=== PATIENT | female | born 1960 | race Caucasian/White ===

== ENCOUNTER 2023-09-10 07:47 | Outpatient (REF) | payer OTHER, SELFPAY ==
--- NOTE | ~2023-09-10 | XR_ITS ---
EXAMINATION: XR KNEE, LEFT CLINICAL INFORMATION: Pain in left knee. COMPARISON: None available. TECHNIQUE: Three views of the left knee. FINDINGS: Moderate joint effusion. Status post left knee total arthroplasty. Hardware appears intact. Alignment preserved. Subtle 1 mm lucency subjacent to the medial tibial flange of the prosthesis. XR/XR knee LT 3V IMPRESSION: 1. Status post left knee total arthroplasty. Hardware appears intact. Alignment preserved. 2. Subtle 1 mm lucency subjacent to the medial tibial flange of the prosthesis. 3. Moderate joint effusion.
== END 2023-09-10 07:48 | disposition home or self-care (01) ==
LOC: HO.HOSX 07:47
PROVIDERS: Visit Provider Orthopaedic Surgery
DX: M25.562 Pain in left knee (principal)
CPT/HCPCS: 73562

== ENCOUNTER 2023-09-10 08:29 | Outpatient (AMB) | payer OTHER, SELFPAY ==
--- NOTE | 2023-09-10 08:42 | MHC.OFFVIS ---
Intake Visit Reasons: OV Left Knee pain surg 2018 DR [place] Note: Verónica is a 62 year old female who presents with complaints of intermittent discomfort in her left knee after undergoing left total knee replacement surgery in August of 2017. The patient states that she retired from her job approximately 1 year ago. Since that time she states that she has been fairly sedentary. She does not have a consistent exercise or stretching program. She also reports weakness in both of her lower extremities. She denies any fevers or chills. She has taken Tylenol and Motrin which gave her mild relief. Allergies amoxicillin Allergy (Intermediate, Verified 09/10/23 08:47) Rash azithromycin Allergy (Intermediate, Verified 09/10/23 08:47) Rash Sulfa (Sulfonamide Antibiotics) Allergy (Intermediate, Verified 09/10/23 08:47) Rash Medication List - Last Reconciled 09/10/23 by Bertrand Sanford MD albuterol sulfate 90 mcg/actuation inhalation clindamycin HCl 600 mg (2 x 300 mg) PO ONCE nicotine (polacrilex) mg PO pravastatin 20 mg PO DAILY PFSH Surgical History (Updated 09/10/23 @ 08:50 by Jocelin Grimes CMA) History of lumpectomy of both breasts Hx of right knee surgery Hx of hysterectomy Hx of left knee surgery Social History (Updated 09/10/23 @ 08:50 by Jocelin Grimes CMA) Patient Tobacco Use Status: Former Tobacco user Current occupational status: retired Physical Exam Const Other: Well-nourished well-developed very friendly female awake alert and oriented x3 in no acute distress Extrem Other: Bilateral lower extremity examination shows good capillary refill, no skin lesions noted, normal sensation light touch Left knee examination shows that the surgical incision is well healed, no erythema, full active extension and flexion to 115 degrees, her patella tracks well Results Reviewed Results Reviewed: X-rays of the patient's left knee show a total knee arthroplasty in good position with no signs of loosening, no acute bony abnormalities Assessment & Plan Assessment & Plan (1) Left knee pain: Code(s): M25.562 - Pain in left knee Category: Medical Plan Ms. Ojeda presents with intermittent left knee discomfort and bilateral lower extremity weakness most likely due to disuse stiffness and muscle atrophy. I had a lengthy discussion with the patient regarding the treatment options. I did recommend that she go to formal physical therapy. She states that she is willing to do so. I also encouraged her to begin a regular exercise program. She will contact me prior to her follow-up appointment in 2-3 months should any questions or concerns arise. Feel free to call me at any time should questions regarding her orthopedic management arise. I spent 21 minutes in reviewing the patient's records and imaging studies, seeing the patient and documenting in the medical record. Orders: Orders XR knee LT 3V Today M25.562 - Pain in left knee PT Evaluation and Treatment Today M25.562 - Pain in left knee Medications: New clindamycin HCl Take two caps (600 mg) one hour before any dental work 600 mg (2 x 300 mg) PO ONCE 10 caps 0RF Coding Level of Care Code Est Pt Level 3 (03620) Diagnoses Left knee pain M25.562
== END 2023-09-10 09:16 | disposition home or self-care (01) ==
PROVIDERS: Visit Provider Orthopaedic Surgery
DX: M25.562 Pain in left knee (principal)
CPT/HCPCS: 99213

== ENCOUNTER 2023-12-13 09:17 | Outpatient (AMB) | payer OTHER, SELFPAY ==
--- NOTE | 2023-12-13 09:44 | MHC.OFFVIS ---
Intake Visit Reasons: OV Left Knee pain surg 2018 DR Intake Note: Verónica is a 63 year old female who presents to the office today for Left Knee pain ( TKA surgery 2018 DR). Pt states the pain has been progressivley getting worse even after doing a few weeks of PT. Pt states she has the most pain when walking up the stairs. The patient states that she has been fairly sedentary after recently retiring. She states that she is considering joining a gym to exercise more. She denies any fevers or chills. She denies any locking or giving way. Allergies amoxicillin Allergy (Intermediate, Verified 12/13/23 09:45) Rash azithromycin Allergy (Intermediate, Verified 12/13/23 09:45) Rash Sulfa (Sulfonamide Antibiotics) Allergy (Intermediate, Verified 12/13/23 09:45) Rash Medication List - Last Reconciled 12/14/23 by Bertrand Sanford MD albuterol sulfate 90 mcg/actuation inhalation clindamycin HCl 600 mg (2 x 300 mg) PO ONCE fluticasone furoate-vilanterol 100-25 mcg/dose (Breo Ellipta) 1 inh inhalation DAILY nicotine (polacrilex) mg PO pravastatin 20 mg PO DAILY PFSH Surgical History (Updated 09/10/23 @ 08:50 by Jocelin Grimes CMA) History of lumpectomy of both breasts Hx of right knee surgery Hx of hysterectomy Hx of left knee surgery Social History (Updated 09/10/23 @ 08:50 by Jocelin Grimes CMA) Patient Tobacco Use Status: Former Tobacco user Current occupational status: retired Physical Exam Const Other: Well-nourished well-developed very friendly female awake alert and oriented x3 in no acute distress Extrem Other: Bilateral lower extremity examination shows good capillary refill, no skin lesions noted, normal sensation light touch Left knee examination shows that the surgical incision is well healed, no erythema, full active extension and flexion to 120 degrees, her patella tracks well, no instability Results Reviewed Results Reviewed: X-rays of the patient's left knee show a total knee arthroplasty in good position with no signs of loosening, no acute bony abnormalities Assessment & Plan Assessment & Plan (1) Left knee pain: Code(s): M25.562 - Pain in left knee Category: Medical Plan Ms. Ojeda presents with continued discomfort in her left knee after undergoing left total knee replacement surgery in 2018 most likely due to scar tissue formation and disuse secondary to her sedentary lifestyle. Thus, I did encourage her to go ahead and join a gym with her to begin an exercise program. I will also arrange for her to have a an evaluation by Dr. Coombs in our pain management Department here at [facility] to see if the patient is a candidate for a nerve stimulation procedure. The patient does know to take antibiotics before any dental work. She will contact me prior to her follow-up appointment in 3 months should any questions or concerns arise. Feel free to call me at any time should questions regarding her orthopedic management arise. I spent 21 minutes in reviewing the patient's records and imaging studies, seeing the patient and documenting in the medical record. Orders: Referrals Pain Management Referral M25.562 - Pain in left knee Coding Level of Care Code Est Pt Level 3 (55656) Diagnoses Left knee pain M25.562
== END 2023-12-13 10:12 | disposition home or self-care (01) ==
PROVIDERS: Visit Provider Orthopaedic Surgery
DX: M25.562 Pain in left knee (principal); Z96.652 Presence of left artificial knee joint
CPT/HCPCS: 99213

== ENCOUNTER → 2023-12-13 09:17 | Outpatient (BNVA) | payer OTHER, SELFPAY | PROVIDERS: Visit Provider Orthopaedic Surgery ==

== ENCOUNTER 2024-01-16 09:17 | Outpatient (AMB) | payer OTHER, SELFPAY ==
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
[2024-01-16 09:23] VITALS: BP 136/75; PULSE 88; RESP 15; O2SAT 97; BMI 45.4
== END 2024-01-16 10:18 | disposition home or self-care (01) ==
PROVIDERS: PCP Student in an Organized Health Care Education/Training Program; Referring Provider Orthopaedic Surgery; Visit Provider Internal Medicine
DX: M25.562 Pain in left knee (principal)
CPT/HCPCS: 99204

== ENCOUNTER → 2024-01-16 09:17 | Outpatient (BNVA) | payer OTHER, SELFPAY | PROVIDERS: Referring Provider Orthopaedic Surgery; Visit Provider Internal Medicine ==

== ENCOUNTER 2024-02-05 12:54 | Outpatient (AMB) | payer OTHER, SELFPAY ==
[2024-02-05 13:16] VITALS: BMI 45.4
--- NOTE | 2024-02-05 13:16 | MHC.OFFVIS ---
Vital Signs 02/05/24 13:16 Height 5 ft 2 in Weight 248 lb BMI 45.4 Intake Visit Reasons: Right medial knee pain Intake Note: Verónica is a 63 year old female who presents with complaints of progressively worsening right knee pain. She did undergo left total knee replacement surgery several years ago. She reports minimal discomfort in her left knee. She describes her right knee pain as sharp and severe in nature. She wishes to hold off on right total knee replacement surgery for as long as possible. She has done physical therapy exercises which aggravated her pain. She has also tried Tylenol and anti-inflammatory medicines which gave her minimal relief. Allergies amoxicillin Allergy (Intermediate, Verified 02/05/24 13:16) Rash azithromycin Allergy (Intermediate, Verified 02/05/24 13:16) Rash Sulfa (Sulfonamide Antibiotics) Allergy (Intermediate, Verified 02/05/24 13:16) Rash Medication List - Last Reconciled 02/05/24 by Bertrand Sanford MD albuterol sulfate 90 mcg/actuation inhalation clindamycin HCl 600 mg (2 x 300 mg) PO ONCE esomeprazole magnesium 20 mg PO DAILY fluticasone furoate-vilanterol 100-25 mcg/dose (Breo Ellipta) 1 inh inhalation DAILY nicotine (polacrilex) mg PO pravastatin 20 mg PO DAILY PFSH Surgical History (Updated 09/10/23 @ 08:50 by Jocelin Grimes CMA) History of lumpectomy of both breasts Hx of right knee surgery Hx of hysterectomy Hx of left knee surgery Social History (Updated 09/10/23 @ 08:50 by Jocelin Grimes CMA) Patient Tobacco Use Status: Former Tobacco user Current occupational status: retired Physical Exam Vital Signs: BMI result Body Mass Index 45.4 Const Other: Well-nourished well-developed very friendly female awake alert and oriented x3 in no acute distress Extrem Other: Bilateral lower extremity examination shows good capillary refill, no skin lesions noted, normal sensation light touch Right knee examination shows a minimal effusion, palpable crepitus with range of motion, pain with range of motion, range of motion from -3 degrees to 115 degrees, no instability Office Procedures Joint Injection/Aspiration Joint Injection/Aspiration Primary Site: right knee Prep: site was prepped using aseptic technique Injected: 40 mg of, DepoMedrol and 1% plain lidocaine Procedure: The patient tolerated the procedure well Coding 50650 - Large joint Procedure code (CPT) selection complete Results Reviewed Results Reviewed: X-rays of the patient's right knee taken previously show joint space narrowing, subchondral sclerosis, no acute bony abnormalities Assessment & Plan Assessment & Plan (1) Right knee pain: Code(s): M25.561 - Pain in right knee Category: Medical (2) Right medial knee pain: Code(s): M25.561 - Pain in right knee Plan Verónica presents with progressively worsening right knee pain due to degenerative joint disease. I had a lengthy discussion with the patient regarding the treatment options. The risks and benefits of a right knee cortisone injection were discussed at length with the patient. The patient wished to proceed. She tolerated the injection well. She will continue with her home exercise program. She will contact me prior to her follow-up appointment in 3 months should any questions or concerns arise. Feel free to call me at any time should questions regarding her orthopedic management arise. I spent 20 minutes in reviewing the patient's records and imaging studies, seeing the patient and documenting in the medical record. Orders: Orders AMB Joint Injection/Aspiration Today M25.561 - Pain in right knee Coding Level of Care Code Est Pt Level 3 (38609) Complex EM visit Add On G2211 Diagnoses Right knee pain M25.561 Right medial knee pain M25.561 CPT Codes Coding - 20077 Large joint: 69703 - Large joint ([id number])
== END 2024-02-05 13:27 | disposition home or self-care (01) ==
PROVIDERS: PCP Student in an Organized Health Care Education/Training Program; Visit Provider Orthopaedic Surgery
DX: M25.561 Pain in right knee (principal)
CPT/HCPCS: 20610; 99213

== ENCOUNTER 2024-02-05 14:32 | Outpatient (REF) | payer OTHER, SELFPAY | END 2024-02-05 14:33 | disposition home or self-care (01) | LOC: HO.HOSX 14:32 | PROVIDERS: Visit Provider Orthopaedic Surgery | DX: M25.561 Pain in right knee (principal) | CPT/HCPCS: 20610; J1010; J2003 ==

== ENCOUNTER 2024-02-18 11:27 | Outpatient (AMB) | payer OTHER, SELFPAY ==
--- NOTE | 2024-02-18 11:27 | MHC.OFFVIS ---
Intake Visit Reasons: Procedure Discussion Allergies amoxicillin Allergy (Intermediate, Verified 02/05/24 13:16) Rash azithromycin Allergy (Intermediate, Verified 02/05/24 13:16) Rash Sulfa (Sulfonamide Antibiotics) Allergy (Intermediate, Verified 02/05/24 13:16) Rash HPI HPI Procedure Discussion: Details: 63-year-old female who presents today via tele visit for discussion of procedure. She currently has for; to (do) insurance. She deferred stimulation therapy due to psychological clearance and dealing with the insurance authorizations. She wants to hold the treatment for now. [facility] Surgical History (Updated 09/10/23 @ 08:50 by Jocelin Grimes CMA) History of lumpectomy of both breasts Hx of right knee surgery Hx of hysterectomy Hx of left knee surgery Social History (Updated 09/10/23 @ 08:50 by Jocelin Grimes CMA) Patient Tobacco Use Status: Former Tobacco user Current occupational status: retired Review of Systems Const All systems reviewed & are unremarkable except as noted in HPI and below Telehealth Telehealth Telehealth Platform: [facility] Location of provider rendering services: practice address Location of patient: address on file Patient Identification confirmed using: Name, : Yes Telehealth method: video Patient verbally consented to treatment: Yes Patient verbally consented to billing insurance company: Yes Patient informed of any privacy concerns related to visit: Yes Minutes spent on Phone/Video with Pt.: 5 Results Reviewed Results Reviewed: No imaging is available for review. Assessment & Plan Assessment & Plan (1) Right knee pain: Code(s): M25.561 - Pain in right knee Category: Medical (2) Left knee pain: Code(s): M25.562 - Pain in left knee Category: Medical Plan She is not interested in any interventional therapy at this time due to trouble with insurance authorizations. Follow up as needed. Scribed for Dr. Coombs by Bobby Saeed, emergency medical technician basic, on 02/18/2024. I, Dr. Coombs, have personally reviewed and agree with the information entered by the scribe. Coding Level of Care Code Tele Est Pt Level 2 (61631) Diagnoses Right knee pain M25.561 Left knee pain M25.562
== END 2024-02-18 11:27 | disposition home or self-care (01) ==
LOC: HO.PMC 11:27
PROVIDERS: PCP Student in an Organized Health Care Education/Training Program; Visit Provider Internal Medicine
DX: M25.561 Pain in right knee (principal); M25.562 Pain in left knee
CPT/HCPCS: 99212

== ENCOUNTER → 2024-02-18 11:27 | Outpatient (BNVA) | payer OTHER, SELFPAY | PROVIDERS: PCP Student in an Organized Health Care Education/Training Program; Visit Provider Internal Medicine ==

== ENCOUNTER 2024-05-07 07:35 | Outpatient (AMB) | payer OTHER, SELFPAY ==
--- NOTE | 2024-05-07 07:37 | A.OFFVIS_ITS ---
Vital Signs 05/07/24 07:38 Height 5 ft 2 in Weight 248 lb BMI 45.4 Intake Visit Reasons: Right knee pain Intake Note: Verónica is a 63 year old female who presents with complaints of progressively worsening right knee pain. She did undergo left total knee replacement surgery several years ago. She reports minimal discomfort in the left knee. She wishes to hold off on right total knee replacement surgery for as long as possible. She has had cortisone injections in the past which gave her fairly good relief. She has also tried Tylenol and ibuprofen which gave her mild relief. She denies any locking or giving way. Allergies amoxicillin Allergy (Intermediate, Verified 05/07/24 07:38) Rash azithromycin Allergy (Intermediate, Verified 05/07/24 07:38) Rash Sulfa (Sulfonamide Antibiotics) Allergy (Intermediate, Verified 05/07/24 07:38) Rash Medication List - Last Reconciled 05/07/24 by Bertrand Sanford MD albuterol sulfate 90 mcg/actuation inhalation clindamycin HCl 600 mg (2 x 300 mg) PO ONCE esomeprazole magnesium 20 mg PO DAILY fluticasone furoate-vilanterol 100-25 mcg/dose (Breo Ellipta) 1 inh inhalation DAILY nicotine (polacrilex) mg PO pravastatin 20 mg PO DAILY PFSH Surgical History (Updated 09/10/23 @ 08:50 by Jocelin Grimes CMA) History of lumpectomy of both breasts Hx of right knee surgery Hx of hysterectomy Hx of left knee surgery Social History (Updated 09/10/23 @ 08:50 by Jocelin Grimes CMA) Patient Tobacco Use Status: Former Tobacco user Current occupational status: retired Physical Exam Vital Signs: BMI result Body Mass Index 45.4 Const Other: Well-nourished well-developed very friendly female awake alert and oriented x3 in no acute distress Extrem Other: Bilateral lower extremity examination shows good capillary refill, no skin lesions noted, normal sensation light touch Right knee examination shows a minimal effusion, palpable crepitus with range of motion, pain with range of motion, no instability Office Procedures AMB Joint Injection/Aspiration Joint Injection/Aspiration Primary Site: right knee Prep: site was prepped using aseptic technique Injected: 40 mg of, DepoMedrol and 1% plain lidocaine Procedure: The patient tolerated the procedure well Coding 44157 - Large joint Procedure code (CPT) selection complete Results Reviewed Results Reviewed: X-rays of the patient's right knee taken previously show joint space narrowing, subchondral sclerosis, no acute bony abnormalities Assessment & Plan Assessment & Plan (1) Right knee pain: Code(s): M25.561 - Pain in right knee Category: Medical (2) Arthritis of right knee: Code(s): M17.11 - Unilateral primary osteoarthritis, right knee Category: Medical Plan Mrs. Ojeda presents with progressively worsening right knee pain due to degenerative joint disease. The risks and benefits of a cortisone injection were discussed at length with the patient. The patient wished to proceed. She tolerated the injection well. She will continue with her home exercise program. She will contact me prior to her follow-up appointment in 3 months should any questions or concerns arise. Feel free to call me at any time should questions regarding her orthopedic management arise. I spent 22 minutes in reviewing the patient's records and imaging studies, seei ng the patient and documenting in the medical record. Orders: Orders AMB Joint Injection/Aspiration Today M17.11 - Unilateral primary osteoarthritis, right knee Coding Level of Care Code Est Pt Level 3 (42414) Complex EM visit Add On G2211 Diagnoses Right knee pain M25.561 Arthritis of right knee M17.11 CPT Codes Coding - 48759 Large joint: 45288 - Large joint ([id number])
--- OUTSIDE RECORDS SUMMARY | 2024-05-07 07:37 | XMS_ITS | Data Portability ---
Author Organization [facility], [id number] Address [address] [place] [address] Assessment No assessment recorded. Plan of Treatment Reminders Order Date Submit Date Provider Last Modified By Organization Details Last Modified Time Details Appointments None record ed. Lab None record ed. Referral None record ed. Procedures None record ed. Surgeries None record ed. Imaging None record ed. Medication Orders None record ed. Patient TargetsNo targets recorded. Patient InstructionsNo instructions recorded. Reason for Referral None Reported. Medical Equipment None Reported. Medications Name Sig Start Date Stop Date Status Note LastModified by Organization Details LastModified Time bupropion HCl SR 150 mg tablet,12 hr sustained-re lease TAKE 1 TABLET EVERY DAY FOR 3 DAYS THEN INCREASE TO 1 TABLET TWICE A DAY active Not Available Not Available Not Available acetic acid 2 % ear solution USE 4 DROPS INTO LEFT EAR TWICE A DAY active Not Available Not Available No t Available prednisone 10 mg tablet TAKE 4 TABS BY MOUTH X 3 DAYS, TAKE 3 TABS X 3 DAYS, TAKE 2 TABS X 3 DAYS, THEN TAKE 1 TAB X 3 DAYS. active Not Available Not Available No t Available cefpodoxime 200 mg tablet TAKE 1 TABLET BY MOUTH TWICE A DAY active Not Available Not Available No t Available doxycycline monohydrate 100 mg tablet TAKE 1 TABLET BY MOUTH TWICE A DAY FOR 10 DAYS active Not Available Not Available No t Available famotidine 20 mg tablet TAKE 1 TABLET BY MOUTH TWICE A DAY active Not Available Not Available No t Available nystatin 100,000 unit/gram topical powder APPLY TO AFFECTED AREA TOPICALLY 2 TIMES A DAY FOR 10 DAYS active Not Available Not Available Not Available albuterol sulfate HFA 90 mcg/actuatio n aerosol inhaler INHALE 2 PUFFS INTO THE LUNGS EVERY 6 HOURS NEEDED FOR COUGH, WHEEZING OR SHORTNESS OF BREATH. active Not Available Not Available N ot Available naproxen 500 mg tablet TAKE 1 TABLET BY MOUTH 2 TIMES DAILY (WITH MEALS) FOR 360 DAYS. active Not Available Not Available No t Available esomeprazole magnesium 20 mg capsule,leon yed release TAKE 1 CAPSULE BY MOUTH ONCE A DAY TAKE IN MORNING ON EMPTY STOMACH. WAIT 60 MINUTES BEFORE EATING. active Not Available Not Available No t Available Advair HFA 230 mcg-21 mcg/actuatio n aerosol inhaler PLEASE SEE ATTACHED FOR DETAILED DIRECTIONS active Not Available Not Available N ot Available QuickVue At-Home COVID-19 Test kit USE ACCORDING TO MANUFACTORE RS DIRECTIONS active Not Available Not Available N ot Available Vitals None Recorded Social History None recorded. Functional Status None recorded. Mental Status None recorded. Family History Nothing Reported. Medical History No medical history recorded. Gynecological HistoryNo gynecological history recorded. Obstetrics History GPAL:G 0 P 0 0 0 0 Past Encounters Encounter ID Performer Location Encounter Start Date Encounter Closed Date Diagnosis/Indication Diagnosis SNOMED-CT Code Diagnosis ICD10 Code Diagnosis Note [id number] [address] 02/07/2021 15:34:34 02/07/2021 17:59:[id number] [place] [address] 02/06/2022 08:24:52 02/06/2022 09:22:36 [id number] [place] [address] 04/08/2020 09:15:21 04/08/2020 10:19:33 [id number] [place] [address] 01/18/2021 09:46:02 01/18/2021 14:42:17 [id number] [id number] [place] [address] 03/24/2020 08:09:27 03/24/2020 09:23:59 Health Concerns Section Related Observation LastModified by Organization Detai ls LastModified Time None Recorded Concern Status LastModified by Organization Details LastModified Time None Recorded Advance Directives Directive None Recorded Payers Encounter Date Sequence Insurance Name Policy Number Policy Lang Covered Member ID Lang Member ID Guarantor Name 02/06/[address] [place] [address] ([facility]) [id number] Verónica Ojeda [id number] Verónica [place] Episode No OBEpisode recorded.
--- OUTSIDE RECORDS SUMMARY | 2024-05-07 07:37 | XMS_ITS | Continuity of Care Document ---
Author Organization [place] - [facility], [facility] Address [address] [place] [address] Care Team Providers Care Pilates Coordinator Name Role Phone ANCHOR-PEDERSEN, HECTOR Primary Care Provider Assessment Encounter Date Assessment Date Assessment LastModified by Organization Details LastModified Time 02/15/2024 02/15/2024 63-year-old female, former smoker, presents with persistent left-sided ear blockage, no otalgia. She has had workup including CT of the sinuses, audiogram and has had multiple normal ear exams. Cerumen is absent. Middle ear is well aerated there is some scalloping of the tongue. I recommended: 1. Aural hygiene. In particular I recommend avoiding Q-tip use. 2. Jaw joint precautions in particular avoidance of gum chewing. I congratulated her on her continued abstinence from tobacco but advised if possible to switch to a different habit such as using a lozenge as I expect the chronic jaw motion is contributing to the ear blockage sensation. 3. This is usually her most symptomatic time here from allergies and she is not currently on her allergy regimen. I advised that she do use it regularly each fall. Follow-up for persistent or worsening symptoms. [email or web address] Not available 02/16/2024 11:20:30 Plan of Treatment Reminders Order Date Submit Date Provider Last Modified By Organization Details Last Modified Time Details Appointments None record ed. Lab None record ed. Referral None record ed. Procedures None record ed. Surgeries None record ed. Imaging None record ed. Medication Orders None record ed. Patient TargetsNo targets recorded. Patient InstructionsNo instructions recorded. Reason for Referral None Reported. Problems Name Problem SNOMED Code Status Onset Date Resolution Date Notes Provider Name and Address Organization Details Recorded Time [facility] ce of salivary secretion 17494802 Active 2019 [facility] valeri of salivary secretion ; Note: Date Diagnosed : 0 10:11 AM (K11.7) Not Available [facility] 4 02:52:26 Allergic rhinitis 04971886 Active 2020 Allergic rhinitis, unspecifi ed; Note: Date Diagnosed : 09/17/2020 2:26 PM (J30.9) Not Available [facility] 4 02:52:30 Tobacco user 095143721 Active 2020 Tobacco use; Note: Date Diagnosed : 09/17/2020 2:26 PM (Z72.0) Not Available [facility] 4 02:52:28 Gastroeso phageal reflux disease without esophagit is 898080309 Active 2022 Gastro-es ophageal reflux disease without esophagit is; Note: Date Diagnosed : 12/14/2022 12:43 PM (K21.9) Not Available [facility] 4 02:52:27 Dysphagia 93295390 Active 2022 Dysphagia , pharyngoe sophageal phase; Note: Date Diagnosed : 09/01/2022 11:54 AM (R13.14) Not Available [facility] 4 02:52:28 Itching of skin 793892047 Active 2022 Pruritus, unspecifi ed; Note: Date Diagnosed : 01/16/2023 2:15 PM (L29.9) Not Available [facility] 4 02:52:25 Deviated nasal septum 810062649 Active 2020 Deviated nasal septum; Note: Date Diagnosed : 09/17/2020 2:26 PM (J34.2) Not Available [facility] 4 02:52:29 Dysfuncti on of bilateral eustachia n tubes 67052563294 89889 Active 2023 LIOR HELLER MD [address] [place] [address], [place], [address] , [facility] - [facility] 4 08:38:21 Pain of left temporoma ndibular joint 83842597724 990944 Active 2023 Arthralgi a of left temporoma ndibular joint; Note: Date Diagnosed : 08/22/2023 9:30 AM (M26.622) Not Available [facility] 4 02:52:27 Otalgia of left ear 5291406259 Active 2023 Otalgia, left ear; Note: Date Diagnosed : 08/22/2023 9:30 AM (H92.02) Not Available [facility] 4 02:52:28 Sensorine ural hearing loss of bilateral ears 593443992 Active 2023 Sensorine ural hearing loss, bilateral ; Note: Date Diagnosed : 08/21/2023 11:11 AM (H90.3) Not Available [facility] 4 02:52:31 Abnormal auditory perceptio n 44102422 Active 2023 LIOR HELLER MD [address] [place] [address], [facility] [place], [phone] [facility] [place] - [facility] 11:18:00 Problem Notes None recorded. Procedures Surgical History Date Name Laterality Status Provider Name and Address Organization Details Recorded Time total knee replacement completed Jessie Lin [place] - [facility] 02/15/2024 09:26:37 Imaging Results None recorded. Procedure Notes None recorded. Medical Equipment None Reported. Allergies Allergen ID Allergen Name Allergen Category Reaction Reaction Severity Criticality Documentation Date Start Date Code Code System Note Provider Name and Address Organization Details Recorded Time 720479 azithromy leonidas medicatio n hives Not available Not available 09/11/2023 20320 RxNorm React ion: other react ion, Hives ; Not Available [facility] 4 01:17:25 351699 amoxicill in medicatio n hives Not available Not available 09/11/2023 723 RxNorm React ion: other react ion, Hives ; Not Available [facility] 4 01:17:25 002881 sulfur medicatio n hives Not available Not available 09/11/2023 90263 RxNorm React ion: other react ion, Hives ; Not Available [facility] 01:17:27 Medications Name Sig Start Date Stop Date Status Note LastModified by Organization Details LastModified Time atorvasta tin 40 mg tablet TAKE 1 TABLET BY MOUTH EVERY DAY 02/14 completed Not Available Not Available Not Available bupropion HCl SR 150 mg tablet,12 hr sustained -release TAKE 1 TABLET BY MOUTH 2 TIMES DAILY FOR 360 DAYS. 11/15 completed Not Available Not Available Not Available acetic acid 2 % ear solution 4 drop into left ear twice a day 11/15 completed Medicati on ID: [id number] D uration Value: 14 Brand Name: acetic acid Sen d Method: E-Prescr ibed Sub s Allowed: subs OK Medic ationGen ericName : acetic acid Med ication ID: [id number] D uration Value: 14 Brand Name: acetic acid Sen d Method: E-Prescr ibed Sub s Allowed: subs OK Medic ationGen ericName : acetic acid Not Available Not Available Not Available prednison e 10 mg tablet 4 TABS DAILY FOR 3 DAYS, 3 TABS DAILY X3 DAYS, 2 TABS DAILY X3 DAYS, 1 TAB DAILY X3 DAYS 11/15 completed Not Available Not Available Not Available cefuroxim e axetil 250 mg tablet TAKE 1 TABLET BY MOUTH TWICE A DAY FOR 7 DAYS 11/15 completed Not Available Not Available Not Available cromolyn 5.2 mg/spray (4 %) nasal spray INHALE 1 SPRAY EACH NOSTRIL 2 TO 4 TIMES A DAY active Not Available Not Available No t Available clindamyc in HCl 300 mg capsule TAKE TWO CAPS (600 MG) ONE HOUR BEFORE ANY DENTAL WORK 11/15 completed Not Available Not Available Not Available trazodone 50 mg tablet TAKE 0.5-1 TABLETS BY MOUTH AT BEDTIME FOR 28 DAYS. 11/15 completed Not Available Not Available Not Available pravastat in 40 mg tablet TAKE 1 TABLET BY MOUTH EVERY DAY active Not Available Not Available No t Available sucralfat e 1 gram tablet TAKE 1 TABLET BY MOUTH 4 TIMES DAILY (BEFORE MEALS AND NIGHTLY) active Not Available Not Available No t Available omeprazol e 40 mg capsule,d elayed release Take 1 capsule once a day 11/15 completed Medicati on ID: [id number] D uration Value: 30 Brand Name: omeprasean chakraborty Send Method: E-Prescr ibed Sub s Allowed: subs OK Speci al Instruct ion: TAKE ONE CAPSULE BY MOUTH ONCE A DAY 30-60 MINUTES BEFORE BREAKFAS T Medica tionGene ricName: omeprazo le Medic ation ID: [id number] D uration Value: 30 Brand Name: omeprasean le Send Method: E-Prescr ibed Sub s Allowed: subs OK Speci al Instruct ion: TAKE ONE CAPSULE BY MOUTH ONCE A DAY 30-60 MINUTES BEFORE BREAKFAS T Medica tionGene ricName: omeprazo le Not Available Not Available Not Available acetamino phen ER 650 mg tablet,ex tended release TAKE 1 TABLET BY MOUTH EVERY 8 HOURS NEEDED FOR PAIN FOR UP TO 25 DOSES. 02/14 completed Not Available Not Available Not Available ketorolac 0.5 % eye drops PUT 1 DROP INTO LEFT EYE 3 TIMES A DAY FOR 1 WEEK 02/14 completed Not Available Not Available Not Available famotidin e 20 mg tablet TAKE 1 TABLET BY MOUTH TWICE A DAY active Not Available Not Available No t Available nicotine (polacril ex) 4 mg gum CHEW 1 GUM NEEDED FOR SMOKING CESSATIO N FOR UP TO 30 DAYS. 02/14 completed Not Available Not Available Not Available cephalexi n 500 mg capsule TAKE 1 CAPSULE BY MOUTH THREE TIMES A DAY WITH MEALS FOR 7 DAYS 11/15 completed Not Available Not Available Not Available pantopraz ole 40 mg tablet,de layed release TAKE 1 TABLET BY MOUTH EVERY DAY active Not Available Not Available No t Available erythromy leonidas 5 mg/gram (0.5 %) eye ointment PLACE 1/2 INCH INTO RIGHT EYE 4 TIMES A DAY FOR 7 DAYS 11/15 completed Not Available Not Available Not Available triamcino lone acetonide 55 mcg nasal spray aerosol USE 1 SPRAY BY NASAL ROUTE EVERY DAY. NOT COVERED 11/15 completed Not Available Not Available Not Available omeprazol e 20 mg capsule,d elayed release TAKE 1 CAPSULE BY MOUTH 2 TIMES DAILY FOR 90 DAYS. TAKE 30MINS BEFORE MEALS active Not Available Not Available No t Available pravastat in 20 mg tablet TAKE 1 TABLET BY MOUTH EVERY DAY 02/14 completed Not Available Not Available Not Available azelastin e 137 mcg (0.1 %) nasal spray INHALE 1 TO 2 SPRAYS TWO TIMES A DAY NEEDED FOR CONGESTI ON, RUNNY NOSE AND SNEEZING 11/15 completed Not Available Not Available Not Available albuterol sulfate HFA 90 mcg/actua tion aerosol inhaler INHALE 2 PUFFS INTO THE LUNGS EVERY 6 HOURS NEEDED FOR COUGH, WHEEZING OR SHORTNES S OF BREATH. active Not Available Not Available No t Available ipratropi um bromide 21 mcg (0.03 %) nasal spray INHALE 1 TO 2 SPRAYS EACH NOSTRIL TWO TIMES A DAY FOR RUNNY NOSE active Not Available Not Available No t Available esomepraz ole magnesium 20 mg capsule,d elayed release TAKE 1 CAPSULE BY MOUTH ONCE A DAY TAKE IN MORNING ON EMPTY STOMACH. WAIT 60 MINUTES BEFORE EATING. 02/14 completed Not Available Not Available Not Available oxycodone 5 mg tablet TAKE 1 TABLET BY MOUTH EVERY 8 HOURS NEEDED FOR PAIN FOR UP TO 4 DOSES. 11/15 completed Not Available Not Available Not Available neomycin 3.5 mg/g-poly myxin B 10,000 unit/g-de xameth 0.1 % eye oint APPLY TO LIDS AT BEDTIME 11/15 completed Not Available Not Available Not Available Saline Nasal 0.65 % spray aerosol USE 1 SPRAY BY NASAL ROUTE 2 TIMES DAILY NEEDED FOR CONGESTI ON. active Not Available Not Available No t Available [place] 0.025 % (0.035 %) eye drops INSTILL 1 DROP IN BOTH EYES TWICE A DAY NEEDED FOR ITCH, TEAR OR REDNESS NOT COVERED* * 11/15 completed Not Available Not Available Not Available OptiCadama Da Silva [facility] spacer USE DIRECTED WITH ADVAIR INHALER active Not Available Not Available No t Available Breo Ellipta 100 mcg-25 mcg/dose powder for inhalatio n TAKE 1 PUFF BY MOUTH EVERY DAY active Not Available Not Available No t Available Anoro Ellipta 62.5 mcg-25 mcg/actua tion powder for inhalatio n 11/15 completed Medicati on ID: [id number] B rand Name: Anoro Ellipta Send Method: E-Prescr ibed Sub s Allowed: subs OK Speci al Instruct ion: INHALE 62.5 MCG INTO THE LUNGS DAILY FOR 90 DAYS. Ny dication GenericN orly: Anoro Ellipta Medicati on ID: [id number] B rand Name: Mary Alice Epstein Send Method: E-Prescr ibed Sub s Allowed: subs OK Speci al Instruct ion: INHALE 62.5 MCG INTO THE LUNGS DAILY FOR 90 DAYS. Me dication GenericN orly: Anoro Ellipta Not Available Not Available Not Available Vitals Date Recorded Body height Body weight Provider Name and Address Organization Details Last Updated DateTime 02/15/2024 157.48 cm 627356.13 g Jessie Lin [place] - [facility] 02/15/2024 09:24:21 Social History None recorded. Functional Status None recorded. Mental Status None recorded. Family History Nothing Reported. Medical History Condition Response Allergies/Hayfever Y Anxiety Y COPD Y Arthritis Y Hyperlipidemia Y GERD/Reflux Y Gynecological HistoryNo gynecological history recorded. Obstetrics History GPAL:G 0 P 0 0 0 0 Past Encounters Encounter ID Performer Location Encounter Start Date Encounter Closed Date Diagnosis/Indication Diagnosis SNOMED-CT Code Diagnosis ICD10 Code Diagnosis Note [id number] LIOR HELLER MD [facility] [address] [address] 02/15/2024 09:13:30 02/15/2024 09:58:19 Allergic rhinitis 70163527 J30.9 Abnormal a uditory perception 36863706 H93.299 Health Concerns Section Related Observation LastModified by Organization Detai ls LastModified Time None Recorded Concern Status LastModified by Organization Details LastModified Time None Recorded Payers Encounter Date Sequence Insurance Name Policy Number Policy Lang Covered Member ID Lang Member ID Guarantor Name 02/15/[address] [place] [address] [id number] Verónica Ojeda [id number] Verónica Ojeda Notes Date Note Type Note Provider Name and Address Organization Details Recorded Time 02/15/2024 text/html Patient still fe els plugged and points just anterior to her ear. She has not been on allergy medications. She has had no further. smoking but has been chewing gum up to 15 pieces a day. Has tried some lozenges. PV: : 62 year old female presents today for evaluation of a left ear blockage.She has been mentioning this for several months now. She was last seen one month ago by to review CT sinus results for chroniccongestion and runny nose. CT was normal. Follow up with an audiogram was recommended.She is here earlier than planned because the ear blockage has worsened some. She feels as though there is something deep in her ear that needs jessica pulled out. She has some discomfort around the ear as well.She does have a history of bruxism. She believes she has cracked a lower bridge from clenching. She recently quit smoking and chews nicoretteoften and bites hard candies. LIOR HELLER MD [address] [place] [address], [phone], [facility] - [facility] 02/16/2024 11:20:43 OBGyn Episode No OBEpisode recorded.
--- OUTSIDE RECORDS SUMMARY | 2024-05-07 07:37 | XMS_ITS ---
Author Name [facility] Organization Unknown History of Medication Use Medication Directions Dispensed Refills Start Date End Date Stat naproxen 500 mg tablet TAKE 1 TABLET BY MOUTH 2 TIMES DAILY (WITH MEALS) FOR 360 DAYS. 11/10/2022 completed trazodone 50 mg tablet TAKE 1 TABLET BY MOUTH AT BEDTIME FOR INSOMNIA 11/10/2022 completed nystatin 100,000 unit/gram topical powder APPLY TO AFFECTED AREA TOPICALLY 2 TIMES A DAY FOR 10 DAYS 11/10/2022 completed [employer]ue At-Home COVID-19 Test kit USE ACCORDING TO MANUFACTORERS DIRECTIONS 11/10/2022 completed bupropion HCl SR 150 mg tablet,12 hr sustained-release TAKE 1 TABLET EVERY DAY FOR 3 DAYS THEN INCREASE TO 1 TABLET TWICE A DAY 11/10/2022 active nystatin 100,000 unit/gram topical powder APPLY TO AFFECTED AREA TOPICALLY 2 TIMES A DAY FOR 10 DAYS 11/10/2022 completed [employer] At-Home COVID-19 Test kit USE ACCORDING TO MANUFACTORERS DIRECTIONS 11/10/2022 completed Advair HFA 230 mcg-21 mcg/actuation aerosol inhaler PLEASE SEE ATTACHED FOR DETAILED DIRECTIONS 11/10/2022 active cefpodoxime 200 mg tablet TAKE 1 TABLET BY MOUTH TWICE A DAY 11/10/2022 completed doxycycline monohydrate 100 mg tablet TAKE 1 TABLET BY MOUTH TWICE A DAY FOR 10 DAYS 11/10/2022 completed famotidine 20 mg tablet TAKE 1 TABLET BY MOUTH TWICE A DAY 11/10/2022 active prednisone 10 mg tablet TAKE 4 TABS BY MOUTH X 3 DAYS, TAKE 3 TABS X 3 DAYS, TAKE 2 TABS X 3 DAYS, THEN TAKE 1 TAB X 3 DAYS. 11/10/2022 completed albuterol sulfate HFA 90 mcg/actuation aerosol inhaler INHALE 2 PUFFS INTO LUNGS EVERY 4 HOURS NEEDED FOR COUGH, WHEEZING, OR FOR SHORTNESS OF BREATH 11/10/2022 active Allergies Allergen Reaction Severity Comment Documented Date Source Statu s ZITHROMAX ENS_[facility]ECT AMOXICILLIN ENS_AONECT LEVAQUIN E[facility]ONECT SULFA (SULFONAMIDE ANTIBIOTICS) [facility] Problems Problem Status Onset Date Problem Type Date of Resoluti on Source Tear of left rotator cuff active 2022-08-03 ProblemAct ENS[facility] Impingement syndrome of left shoulder region active 2022-08-03 ProblemAct E[facility] ECT
[2024-05-07 07:38] VITALS: BMI 45.4
== END 2024-05-07 07:56 | disposition home or self-care (01) ==
PROVIDERS: PCP Student in an Organized Health Care Education/Training Program; Visit Provider Orthopaedic Surgery
DX: M17.11 Unilateral primary osteoarthritis, right knee (principal)
CPT/HCPCS: 20610; 99213

== ENCOUNTER → 2024-05-07 07:35 | Outpatient (BNVA) | payer OTHER, SELFPAY | PROVIDERS: PCP Student in an Organized Health Care Education/Training Program; Visit Provider Orthopaedic Surgery | DX: M17.11 Unilateral primary osteoarthritis, right knee (principal) | CPT/HCPCS: 20610; J1010; J2003 ==

== ENCOUNTER 2024-09-11 10:19 | Outpatient (AMB) | payer OTHER, SELFPAY ==
--- NOTE | 2024-09-11 10:21 | A.OFFVIS_ITS ---
Vital Signs 09/11/24 10:29 Height 5 ft 2 in Weight 248 lb BMI 45.4 Intake Visit Reasons: Left shoulder pain, Right knee pain Intake Note: Verónica is a 64 year old female who presents with complaints of progressively worsening left shoulder pain as well as right knee pain. She describes her pains as sharp in nature. She has tried physical therapy exercises which aggra vated her pains. She has also tried Tylenol and anti-inflammatory medicines which gave her minimal relief. She did undergo left total knee replacement surgery several years ago. She reports minimal discomfort in her left knee. She wishes to hold off on surgery if at all possible. Allergies amoxicillin Allergy (Intermediate, Verified 09/11/24 10:29) Rash azithromycin Allergy (Intermediate, Verified 09/11/24 10:29) Rash Sulfa (Sulfonamide Antibiotics) Allergy (Intermediate, Verified 09/11/24 10:29) Rash Medication List - Last Reconciled 09/11/24 by Bertrand Sanford MD albuterol sulfate 90 mcg/actuation inhalation clindamycin HCl 600 mg (2 x 300 mg) PO ONCE esomeprazole magnesium 20 mg PO DAILY fluticasone furoate-vilanterol 100-25 mcg/dose (Breo Ellipta) 1 inh inhalation DAILY nicotine (polacrilex) mg PO pravastatin 20 mg PO DAILY PFSH Surgical History (Updated 09/10/23 @ 08:50 by Jocelin Grimes CMA) History of lumpectomy of both breasts Hx of right knee surgery Hx of hysterectomy Hx of left knee surgery Social History (Updated 09/10/23 @ 08:50 by Jocelin Grimes CMA) Patient Tobacco Use Status: Former Tobacco user Current occupational status: retired Physical Exam Vital Signs: BMI result Body Mass Index 45.4 Const Other: Well-nourished well-developed very friendly female awake alert and oriented x3 in no acute distress Extrem Other: Left shoulder examination shows slightly decreased range of motion when compared to her right shoulder, 4+ out of 5 strength with supraspinatus testing, positive impingement signs, no instability Right knee examination shows a minimal effusion, palpable crepitus with range of motion, pain with range of motion, no instability Office Procedures AMB Joint Injection/Aspiration Joint Injection/Aspiration Primary Site: left shoulder Prep: site was prepped using aseptic technique Injected: 40 mg of, DepoMedrol and 1% plain lidocaine Procedure: The patient tolerated the procedure well Coding 79960 - Large joint Procedure code (CPT) selection complete AMB Joint Injection/Aspiration Joint Injection/Aspiration Primary Site: right knee Prep: site was prepped using aseptic technique Injected: 40 mg of, DepoMedrol and 1% plain lidocaine Procedure: The patient tolerated the procedure well Coding - Large joint Procedure code (CPT) selection complete Results Reviewed Results Reviewed: X-rays of the patient's right knee taken previously show joint space narrowing, subchondral sclerosis, no acute bony abnormalities Assessment & Plan Assessment & Plan (1) Arthritis of right knee: Code(s): M17.11 - Unilateral primary osteoarthritis, right knee Category: Medical (2) Impingement syndrome of left shoulder: Code(s): M75.42 - Impingement syndrome of left shoulder Category: Medical (3) Left shoulder pain: Code(s): M25.512 - Pain in left shoulder (4) Right knee pain: Code(s): M25.561 - Pain in right knee Category: Medical Plan Mrs. Ojeda presents with left shoulder pain due to impingement syndrome as well as right knee pain due to degenerative joint disease. The risks and benefits of a left shoulder cortisone injection as well as a right knee cortisone injection were discussed at length with the patient. The patient wished to proceed. She tolerated the 2 injections well. She will continue with her home exercise program. She will contact me prior to her follow-up appointment in 3 months should any questions or concerns arise. Feel free to call me at any time should questions regarding her orthopedic management arise. I spent 21 minutes in reviewing the patient's records and imaging studies, seeing the patient and documenting in the medical record. Orders: Orders AMB Joint Injection/Aspiration Today M17.11 - Unilateral primary osteoarthritis, right knee AMB Joint Injection/Aspiration Today M75.42 - Impingement syndrome of left shoulder Coding Level of Care Code Est Pt Level 3 (76148) Complex EM visit Add On G2211 Diagnoses Arthritis of right knee M17.11 Impingement syndrome of left shoulder M75.42 Left shoulder pain M25.512 Right knee pain M25.561 CPT Codes Coding - 18195 Large joint: 70479 - Large joint ([id number]) Coding - 96059 Large joint: 63991 - Large joint ([id number])
[2024-09-11 10:29] VITALS: BMI 45.4
--- OUTSIDE RECORDS SUMMARY | 2024-09-11 11:20 | XMS_ITS | Data Portability ---
Author Organization [facility], [address] Address [address] [place] [address] Assessment No assessment recorded. Plan of Treatment [...] SNOMED-CT Code Diagnosis ICD10 Code Diagnosis Note [id number] [facility] [address] [address] 02/07/2021 15:34:34 02/07/2021 17:59:[id number] [place] [address] [address] [address] 02/06/2022 08:24:52 02/06/2022 09:22:36 [id number] [address] [place] [address] 04/08/2020 09:15:21 04/08/2020 10:19:33 [id number] [address] [place] [address] 01/18/2021 09:46:02 01/18/2021 14:42:17 [id number] [address] [place] [address] 03/24/2020 08:09:27 03/24/2020 09:23:59 Health Concerns Section Related Observation LastModified by Organization Detai ls LastModified Time None Recorded Concern Status LastModified by Organization Details LastModified Time None Recorded Advance Directives Directive None Recorded Payers Insurance Date Sequence Insurance Name Policy Number Policy Lang Covered Member ID Lang Member ID Guarantor Name 01/06/2023 1 [facility] [id number] 1 Verónica Ojeda [id number] Verónica Ojeda OBGyn Episode No OBEpisode recorded.
--- OUTSIDE RECORDS SUMMARY | 2024-09-11 11:20 | XMS_ITS | Clinical Summary ---
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 Phone Unavailable Primary Care Provider Unavailabl e Social History Tobacco Use Types Packs/Day Years Used Date Smoking Tobacco: Never Assessed Comments Unknown Sex and Gender Information Value Date Recorded Sex Assigned at Not on file Legal Sex Female 1:56 AM EDT Gender Identity Not on file Sexual Orientation Not on file Plan of Treatment Health Maintenance Due Date Last Done Comments Hepatitis C Screening 1962 Pap Smear 1978 DTaP/Tdap/Td (1 - Tdap) 1980 Mammogram/Breast Imaging 2002 Pneumococcal 50+ years (1 of 1 - PCV) 2012 Zoster (Shingrix) (1 of 2) 2012 COVID-19 Vaccine ( - 2023-2 5 season) 2023 Influenza (#1) 2023 RSV (1 - 1-dose 75+ series) 2037 HPV Vaccine Aged Out No longer eligi ble based on patient's age to complete this topic Hep A Aged Out No longer eligi ble based on patient's age to complete this topic Hep B Aged Out No longer eligi ble based on patient's age to complete this topic Hib Aged Out No longer eligi ble based on patient's age to complete this topic Meningococcal ACWY Aged Out No longer eligible based on patient's age to complete this topic Zoster (Zostavax) Discontinued
--- OUTSIDE RECORDS SUMMARY | 2024-09-11 11:20 | XMS_ITS | Clinical Summary ---
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 0 Ac tive PROAIR HFA 108 (90 BASE) MCG/ACT inhaler INHALE 2 PUFFS INTO THE LUNGS EVERY 4 HOURS NEEDED FOR SHORTNESS OF BREATH FOR UP TO 180 DAYS. 5 01/05/2017 Active clotrimazole (MYCELEX) 10 MG jag TAKE 1 LOZENGE BY MOUTH 5 TIMES DAILY. 0 01/05/2017 Active fluticasone (FLONASE) 50 MCG/ACT nasal spray USE 2 SPRAYS INTO EACH NOSTRIL EVERY DAY 11 03/06/2017 Active doxycycline (ADOXA) 100 MG tablet TAKE 1 TABLET BY MOUTH 2 TIMES DAILY FOR 7 DAYS. 0 02/05/2017 Active dexamethasone (DECADRON) 4 MG tablet TAKE 1 TABLET BY MOUTH TWICE A DAY 0 05/15/2017 Active methocarbamol (ROBAXIN) 750 MG tablet Take 750 mg by mouth 4 (four) times a day. 0 05/15/2017 Active sertraline (ZOLOFT) 25 MG tablet TAKE 1 TABLET BY MOUTH EVERY DAY X2 WEEKS THEN INCREASE TO 2 TABLETS DAILY 1 05/28/2017 Active traMADol (ULTRAM) 50 MG tablet TAKE 1 TABLET BY MOUTH EVERY 6 TO 8 HOURS NEEDED 0 05/15/2017 Active meloxicam (MOBIC) 7.5 MG tablet Take 1 tablet (7.5 mg total) by mouth daily. 30 tablet 1 12/04/2017 Active nabumetone (RELAFEN) 750 MG tablet Take 1 tablet (750 mg total) by mouth daily. 30 tablet 2 12/04/2017 Active Additional Information Patient not taking.Reported on 12/10/2018 clindamycin (CLEOCIN) 300 MG capsule Take 2 capsules 1 hour prior to dental appointment 10 capsule 3 09/24/2018 Active buPROPion (ZYBAN) 150 MG 12 hr tablet 0 02/17/2021 Active cefpodoxime (VANTIN) 200 MG tablet 0 02/11/2021 Active meloxicam (MOBIC) 15 MG tablet Take 1 tablet (15 mg total) by mouth daily. 30 tablet 3 05/10/2021 Active traZODone (DESYREL) 50 MG tablet TAKE 1 TABLET BY MOUTH AT BEDTIME FOR INSOMNIA 0 08/24/2021 Active Advair HFA 230-21 MCG/ACT inhaler PLEASE SEE ATTACHED FOR DETAILED DIRECTIONS 0 10/05/2021 Active acetaminophen (TYLENOL EXTRA STRENGTH) 500 MG tablet Three Times A Day 0 09/11/2018 Active Active Problems Problem Noted Date Diagnosed Date Left knee injury 12/10/2018 Primary osteoarthritis of left knee 05/21/2018 Chronic pain of left knee 05/21/2018 Postop check 11/22/2017 Acute meniscal tear of left knee 08/07/2017 Bilateral knee pain 12/26/2016 Family History Medical History Relation Name Comments Heart disease Father Hypertension Mother Cancer Sister Relation Name Status Comments Father Mother Sister Social History Tobacco Use Types Packs/Day Years Used Date Smoking Tobacco: Unknown Smokeless Tobacco: Never Sex and Gender Information Value Date Recorded Sex Assigned at Not on file Gender Identity Not on file Sexual Orientation Not on file Job Start Date Occupation Industry Not on file Not on file Not on file Last Filed Vital Signs Vital Sign Reading Time Taken Comments Blood Pressure - - Pulse - - Temperature - - Respiratory Rate - - Oxygen Saturation - - Inhaled Oxygen Concentration - - Weight 94.3 kg (208 lb) 12/10/2018 9:08 AM EDT Height 160 cm (5' 3 ) 12/10/2018 9:08 AM EDT Body Mass Index 36.85 12/10/2018 9:08 AM EDT Plan of Treatment Health Maintenance Due Date Last Done Comments Hepatitis C Screening 1962 COVID-19 Vaccine (#1) 03/10/1963 Depression Screening 1974 BMI Counseling 1980 Preventative Health Evaluation 1980 DTap / Tdap / Td (1 - Tdap) 1981 Cervical Cancer Screening (P ap Smear) 09/08/1983 Colon Cancer Screening (Colonoscopy) 09/08/2007 Breast Cancer Screening (Mammogram) 2012 Shingrix-Zoster Vaccine (1 of 2) 2012 Influenza Vaccine (#1) 2023 06/08/2007 RSV Adult > 60+ Yrs or Pregn ant (1 - 1-dose 75+ series) 2037 Hepatitis B Vaccines Aged Out No long er eligible based on patient's age to complete this topic Pneumococcal Vaccine Aged Out No long er eligible based on patient's age to complete this topic RSV Ped < 20 months Aged Out No longe r eligible based on patient's age to complete this topic Insurance Payer Benefit Plan / Group Subscriber ID Effective Dates Phone Address [facility] [id number] 2021-Present [address] [facility] [address] [place] [address] O
--- OUTSIDE RECORDS SUMMARY | 2024-09-11 11:20 | XMS_ITS | Clinical Summary ---
Author Organization [facility] Address [address] [place] [address] Phone Care Team Providers Care Sharebroker Name Role Phone Madina Fry MD Primary Care Pr ovider Allergies Active Allergy Reactions Criticality Noted Date Comments Amoxicillin Trihydrate Hives 07/27/2005 Hives/urticaria Azithromycin Other,Hives 08/04/2008 Lumps along the right side of face Bee Venom Protein (Honey Bee) Swelling 12/28/2020 Pruritis, burn, numbness edema Levofloxacin Shortness of breath,Itching,Wheezi ng High 07/28/2015 pruritus Naproxen GI intolerance 05/08/2022 gastritis Sulfa (Sulfonamide Antibiotics) Hives 07/27/2005 Hives/urticaria Wound Dressings Rash,Unknown 05/10/2021 Tapes, ekg leads dermatitis Medications aspirin 81 mg chewable tablet Take 1 Tablet by mouth daily. Active calcium/magnesiu m/vit D3 (CALCIUM MAGNESIUM + D ORAL) Calcium-Magnesi um-Vitamin D (CALCIUM MAGNESIUM OR) Take by mouth daily. Active Lactobacillus acidophilus (PROBIOTIC ORAL) Take by mouth daily. Active Bacillus coagulans-inulin 1 billion-250 cell-mg capsule Take 250 mg by mouth daily. Active acetaminophen (TYLENOL) 500 mg tablet 09/12/19 19 Active inhalat.spacing dev,large mask spacer Inhale 1 each by mouth. 02/10/20 24 Active dexAMETHasone (DECADRON) 4 mg tablet Take 1 tablet (4 mg total) by mouth 2 (two) times a day. 05/15/19 18 Active multivitamin (multivitamin-ir on-minerals) tablet Take 1 tablet by mouth daily. Active pantoprazole (PROTONIX) 40 mg EC tablet TAKE 1 TABLET BY MOUTH EVERY DAY 90 tablet 1 05/05/19 25 Active predniSONE (DELTASONE) 10 mg tablet Take 2 tabs PO daily for 3 days then 1 tab PO daily for 4 days 10 tablet 06/23/19 25 Active albuterol HFA (PROAIR HFA ; PROVENTIL HFA ; VENTOLIN HFA) 90 mcg/actuation inhalerIndicatio ns:Chronic obstructive pulmonary disease with acute exacerbation ([facility] V24, [facility] V28) Inhale 2 puffs by mouth every 4 (four) hours if needed for wheezing. 6.7 g 2 06/23/19 25 Active Additional Information Patient not taking.Reported on 09/05/2024 rosuvastatin (CRESTOR) 40 mg tablet Take 1 tablet (40 mg total) by mouth 1 (one) time each day. 90 each 1 08/27/19 25 Active tirzepatide, weight loss, (Zepbound) 2.5 mg/0.5 mL injectionIndicat ions:Class 3 severe obesity with serious comorbidity and body mass index (BMI) of 45.0 to 49.9 in adult, unspecified obesity type ([facility] V24, [facility] V28) Inject 0.5 mL (2.5 mg total) under the skin every 7 (seven) days for 4 doses. 2 mL 09/03/19 25 025 Active rosuvastatin (CRESTOR) 40 mg tablet Take 1 tablet (40 mg total) by mouth 1 (one) time each day. 90 each 03/03/20 24 025 Discontin ued(Reord er) Active Problems Problem Noted Date Diagnosed Date Former smoker 09/05/2024 Class 3 severe obesity with serious comorbidity and body mass index (BMI) of 45.0 to 49.9 in adult ([facility] V24, [facility] V28) 09/04/2024 Class 3 severe obesity with serious comorbidity and body mass index (BMI) of 45.0 to 49.9 in adult ([facility] V24, [facility] V28) 04/07/2024 Allergic rhinitis 01/25/2024 Chronic obstructive pulmonar y disease ([facility] V24, [facility] V28) 01/25/2024 Nocturnal hypoxia 01/25/2024 Nocturnal hypoxia 12/28/2023 Overview (02/11/2024): Overnight oximetry done on 12/17/2023 showed: 1. Lowest oxygen saturation 81%. 2. Spent time less than 88% was 8 minutes. 3. Patient qualifies for oxygen at night. 4. ANTOLIN is 34. May have sleep apnea. Last Assessment & Plan: Sent to [facility] oxygen order was 2 L. Obtain home sleep study to evaluate for sleep apnea patient have significant symptoms as well. Abnormal Q waves on electrocardiogram 07/17/2023 Coronary artery disease invo lving prairie band coronary artery of prairie band heart without angina pectoris 07/17/2023 Equivocal stress test 07/17/2023 Atypical chest pain 07/13/2023 Prediabetes 05/24/2023 Mixed hyperlipidemia 05/22/2023 Multiple pulmonary nodules d etermined by computed tomography of lung 03/21/2021 Overview (01/25/2024): 1mm to 5mm,needs repeat CT chest in 02/2022 Hiatal hernia 2020 Left knee injury 12/10/2018 Primary osteoarthritis of left knee 05/21/2018 Chronic pain of left knee 05/21/2018 Primary osteoarthritis of left knee 05/21/2018 Acute meniscal tear of left knee 08/07/2017 Bilateral knee pain 12/26/2016 Leukocytosis 08/23/2016 Overview (01/25/2024): Saw heme- most likely this is secondary to her smoking and a stress, I reviewed peripheral smear there is nothing significantly abnormal there is no dysphagia no premature cell etc. I gave her reassurance I also did counseling on smoking. I'm not giving her follow-up but I would be more than glad to see her if her white blood cell count significantly elevated (more than 25,000 Anxiety 08/01/2016 Simple chronic bronchitis ([facility] V24, [facility] V28) 12/24/2015 Fatty liver disease, nonalcoholic 06/30/2013 Vitamin D deficiency 05/08/2013 Rectal bleeding 03/03/2013 Diverticulosis of sigmoid colon 10/13/2011 Acquired pes planus of both feet 05/04/2011 Overview (01/25/2024): IMO update Tobacco use disorder 11/22/2009 Adrenal adenoma 11/08/2007 Overview (01/25/2024): Incidental finding on CT angiogram 2007 Esophageal reflux 11/22/2005 Overview (01/25/2024): ENT ordered barrium swallow 3at [facility] 1.Small hiatal hernia 2.Large amount of GERD 3.Laryngeal penetration w/o aspiration Started on Nexium 20mg daily patient does not tolerate Prilosec. Morbid obesity (CMS/HCC V24, CMS/HCC V28) 2005 Diffuse cystic mastopathy 07/27/2005 Resolved Problems Problem Noted Date Diagnosed Date Resolved Date S/P knee replacement 02/25/2019 024 Encounters Date Type Department Care Team Description 09/05/2024 9:50 AM EDT Office Visit [facility] [address] [facility] [address] [place] [phone] Tray Gilman MD Coronary artery disease involving prairie band coronary artery of prairie band heart without angina pectoris (Primary Dx); Morbid obesity (CMS/HCC V24, CMS/HCC V28); Former smoker 09/04/2024 3:00 PM EDT Nutrition Bariatric Surgery - [address] [phone] Class 3 severe obesity with serious comorbidity and body mass index (BMI) of 45.0 to 49.9 in adult, unspecified obesity type (CMS/HCC V24, CMS/HCC V28) (Primary Dx) 09/02/2024 8:00 AM EDT Office Visit Bariatric Surgery [address] [phone] Horacio Duque MD Class 3 severe obesity with serious comorbidity and body mass index (BMI) of 45.0 to 49.9 in adult, unspecified obesity type (CMS/HCC V24, [facility] V28) (Primary Dx) 08/28/2024 2:30 PM EDT Office Visit Orthopedic Surgery - [place] [address] [facility] [address] [place] [address] Bryan Ceja DPM Pain in toes of both feet (Primary Dx); Onychomycosis; Plantar fasciitis 08/25/2024 Telephone [facility] [address] [facility] 154 [place] [phone] Tray Gilman MD Labs Only 06/23/2024 1:28 PM EST - 06/23/2024 11:59 PM EST Hospital Encounter [address] [phone] Chronic obstructive pulmonary disease with acute exacerbation ([facility] V24, [facility] V28); Productive cough Discharge Disposition: Home or Self Care 06/23/2024 1:00 PM EST Office Visit Adult Medicine [address] [phone] Sil Hilario PA Chronic obstructive pulmonary disease with acute exacerbation ([facility] V24, [facility] V28) (Primary Dx); Productive cough; Hx of antibiotic allergy 06/23/2024 Nurse Triage Adult Medicine [address] [phone] aMdina Fry MD Cough; Vomiting; Headache; Nasal Congestion from Last 3 Months Immunizations Name Administration Dates Next Due Hepatitis B (Jxjhaiz-G-Opbpj , Recombivax HB-Adult) 19yo and older 03/28/2011,03/28/2009 Influenza Quadravalent, MDCK , 0.5ml, preservative free (Flucelvax) 6mo and older 02/17/2022,03/17/2021,02/25/2019,03/18 Influenza Quadravalent, MDCK , 0.5ml, with preservative (Flucelvax) 6mo and older 02/09/2020,01/05/2017 Influenza trivalent, with pr eservative (Fluzone; Afluria) 6mo and older 02/17/2016,04/06/2015,03/18/2014,03/04,01/23/2011,03/23/2008 Influenza, Unspecified 12/27/2023,01/17/2023 Moderna SARS-CoV-2 COVID-19, mRNA, LNP-S, preservative free 01/21/2024 Pfizer SARS-CoV-2 COVID-19, mRNA, LNP-S, preservative free 01/21/2024,01/19/2023,01/09/2023,03/27,08/11/2020 Pneumococcal conjugate 20 va lent (Prevnar 20, PCV 20) 2mo and older 03/03/2024 Pneumococcal polysaccharide 23 valent (Pneumovax 23) 2yo and older 05/11/2016 Td Tetanus diptheria (Tdvax) 7yo and older 09/28/2020 Tdap Tetanus diptheria acell ular pertussis (Boostrix; Adacel) 7yo and older 11/22/2009 Surgical History Surgery Date Site/Laterality Comments HYSTERECTOMY PROCEDURE:HYSTERECTOMY BREAST LUMPECTOMY PROCEDURE:BREAST LUMPECTOMY OVARIAN CYST SURGERY PROCEDURE:OVARIAN CYST SURGERY JOINT REPLACEMENT PROCEDURE:JOINT REPLACEMENT BREAST BIOPSY PROCEDURE: PA BIOPSY BREAST OPEN INCISIONAL HYSTERECTOMY 2004 PROCEDURE: PA VAGINAL HYSTERECTOMY UTERUS 250 GM/< SALPINGOOPHORECTOMY 2004 PROCEDURE: PA LAPAROSCOPY W/RMVL ADNEXAL STRUCTURES; COMMENT: right ESOPHAGOGASTRODUODENOSCOPY 07/24/2011 PROCEDURE: PA ESOPHAGOGASTRODUODENOSCOPY TRANSORAL DIAGNOSTIC; COMMENT: hiatus hernia FLEXIBLE SIGMOIDOSCOPY PROCEDURE: PA SIGMOIDOSCOPY FLX DX W/COLLJ SPEC BR/WA IF PFRMD; COMMENT: adenoma and tics; full colonoscopy in 3 yrs COLONOSCOPY 10/11/11 [facility] PROCEDURE: HISTORICAL COLONOSCOPY; COMMENT: tics; repeat in ten yrs under propofol KNEE SURGERY 10/17/2017 Left PROCEDURE: HISTORICAL KNEE SURGERY; COMMENT: Arthroscopy TOTAL KNEE ARTHROPLASTY 09/09/2018 Left PROCEDURE: HISTORICAL TOTAL KNEE REPLACE ESOPHAGOGASTRODUODENOSCOPY 01/05/2021 PROCEDURE: PA EGD TRANSORAL BIOPSY SINGLE/MULTIPLE; COMMENT: small hiatal hernia, bilious fluid, otherwise normal COLONOSCOPY 01/05/2021 PROCEDURE: HISTORICAL COLONOSCOPY; COMMENT: tiny polyp and diverticulosis Medical History Medical History Date Comments Peptic ulceration DX:Peptic ulce ration Arthritis DX:Arthritis Tobacco use disorder DX:Tobacco use disorder; COMMENT: Quit 11/10/2007 Endometriosis, site unspecified DX:Endometriosis, site unspecified Heartburn DX:Heartburn Headache(784.0) DX:Headache(784. 0) Chest pain 06/10/2007 DX:Chest pain; C OMMENT: 2008, neg. Nuclear ETT and hospitalization Adrenal adenoma 11/08/2007 DX:Adrenal adeno ma; COMMENT: Incidental finding on CT angiogram 2007 Former smoker 11/22/2009 DX:Former smoker Historical Medical DX 05/04/2011 DX:Pes macho nus (flat feet) Diverticulosis of sigmoid colon 10/13/2011 DX:Diverticulosis of sigmoid colon History of vitamin D deficiency 05/08/2013 DX:History of vitamin D deficiency Fatty liver disease, nonalcoholic 06/30/2013 DX:Fatty liver disease, nonalcoholic Fatty liver disease, nonalcoholic 06/30/2013 DX:Fatty liver disease, nonalcoholic Tobacco use disorder 11/22/2009 DX:Tobacco use disorder; COMMENT: Quit 2007, 20 pack year Unspecified vitamin D deficiency 05/08/2013 DX:Unspecified vitamin D deficiency Leukocytosis 08/23/2016 DX:Leukocytosis; COMMENT: Saw heme- most likely this is secondary to her smoking and a stress, I reviewed peripheral smear there is nothing significantly abnormal there is no dysphagia no premature cell etc. I gave her reassurance I also did counseling on smoking. I'm not giving her follow-up but I would be more than glad to see her if her white blood cell count significantly elevated (more than * S/P knee replacement 02/25/2019 DX:S/P knee replacement Hiatal hernia 2020 DX:Hiatal hernia Primary osteoarthritis of left knee 05/21/2018 DX:Primary osteoarthritis of left knee Family History Medical History Relation Name Comments Heart attack Brother Heart attack Father Heart disease Father Other: pulmonary fibrosis Father Hypertension Mother Cancer Sister 1 Breast cancer Sister 2 Breast cancer Sister 3 Diagnosed at a ge 37 Relation Name Status Comments Brother Alive Father (Age 73) Cardiac di s Maternal Grandfather Maternal Grandmother Mother Alive HTN Paternal Grandfather Paternal Grandmother Sister 1 Sister 2 Alive Sister 3 Sister 4 (Age 38) Breast can cer Sister 5 Alive Social History Tobacco Use Types Packs/Day Years Used Date Smoking Tobacco: Former Cigarettes 1.5 43.8 0 09/08/1979 - 07/12/2023 Smokeless Tobacco: Never Tobacco Cessation:Counseling Given: Not Answered Alcohol Use Standard Drinks/Week Comments No 0 (1 standard drink = 0.6 oz pur e alcohol) Housing Instability Answer Date Recorde d Are you worried that in the next 2 months you may not have stable housing? No 02/26/2024 Food Access & Nutrition Answer Date Rec orded Do you have access to a vari ety of food including fruits and vegetables? Yes 02/26/2024 Health Literacy Answer Date Recorded How often do you need to hav e someone help you when you read instructions, pamphlets, or other written material from your doctor or pharmacy? Never 02/26/2024 Caregiver: How often do you need to have someone help you when you read instructions, pamphlets, or other written material from your doctor or pharmacy? Not on file 02/26/2024 Financial Risk Answer Date Recorded How hard is it for you to pa y for the very basics like food, housing, medical care, and air conditioning / heating? Not very hard 02/26/2024 Transportation Answer Date Recorded Has the lack of transportati on kept you from meetings, work, or from getting things needed for daily living? No Has the lack of transportati on kept you from medical appointments or from getting medications? No 02/26/2024 Social Isolation Answer Date Recorded How often do you feel lonely or isolated from those around you? Sometimes 02/26/2024 Food Risk Answer Date Recorded Within the past 12 months we worried whether our food would run out before we got money to buy more. Never true 02/26/2024 Within the past 12 months th e food we bought just didn't last and we didn't have money to get more. Never true 02/26/2024 Dependent Care Answer Date Recorded Do you need help finding or paying for care for your loved ones. For example, child care worker or elderly care for an older adult? No 02/26/2024 Education Answer Date Recorded Do you think completing more education or training, like finishing a GED, going to college, or learning a trade, would be helpful for you? No 02/26/2024 Employment and Income Answer Date Recor ded During the last four weeks, have you been actively looking for work? No 02/26/2024 Living Situation Answer Date Recorded What is your living situation? 1 Interpersonal Safety Answer Date Record ed Physical Abuse 03/11/2024 Verbal Abuse 03/11/2024 Comments Unknown Sex and Gender Information Value Date Recorded Sex Assigned at Female 03/09/2024 1:17 PM EST Legal Sex Female 10:03 PM EST Gender Identity Female 03/09/2024 1:17 PM EST Sexual Orientation Straight 03/09/2024 1: 17 PM EST Obstetrics History Last Filed Vital Signs Vital Sign Reading Time Taken Comments Blood Pressure 124/72 09/05/2024 9:52 AM EDT Pulse 70 09/05/2024 9:52 AM EDT Temperature 36.5 ??C (97.7 ??F) 09/02/2024 8:06 AM ED T Respiratory Rate 18 06/23/2024 1:06 PM EST Oxygen Saturation 95% 09/05/2024 9:52 AM EDT Inhaled Oxygen Concentration - - Weight 114 kg (251 lb) 09/05/2024 9:52 AM EDT Height 157.5 cm (5' 2 ) 09/05/2024 9:52 AM EDT Body Mass Index 45.91 09/05/2024 9:52 AM EDT Plan of Treatment Upcoming Encounters Date Type Department Care Team (Late st Contact Info) Description 09/17/2024 1:30 PM EDT Office Visit Orthopedic Surgery [place] [phone] [phone] Bryan Ceja DPM [address] [address] 11/24/2024 9:00 AM EDT Office Visit Orthopedic [place] [address] [phone] Bryan Ceja DPM [address] [address] 03/04/2025 8:00 AM EST Office Visit Adult Medicine [facility] [address] [place] [phone] Madina Fry MD [address] [place] [address] 03/09/2025 7:40 AM EST Office Visit [facility] - [facility] [address] [phone] Cristiana Ho, PEGGY [address] [facility] [address] [place] [address] Health Maintenance Due Date Last Done Comments Breast Cancer Screening 1960 Hepatitis B Vaccines (3 of 3 - 19+ 3-dose series) 05/23/2011 03/28/2011, 03/28/2009 Zoster Vaccines (1 of 2) 2012 HIV Screening 04/06/2022 Hepatitis C Screening 04/06/2022 RSV Immunization Adult Patients (1 - Risk 60-74 years 1-dose series) 2022 COVID-19 Vaccine ( season) 2024 01/21/2024, 01/21/2024, 01/19/2023, Additional history exists Hypertension/CHF/CAD Annual BMP Blood Test 02/19/2025 02/20/2024, 01/24/2024, 01/24/2024 Depression Screening 02/25/2025 02/26/2024 Social Influencers of Health Screening 02/25/2025 02/26/2024 Lung Cancer Screening (Low Dose CT) 04/15/2025 04/15/2024, 04/24/2023, 04/06/2022, Additional history exists Colorectal Cancer Screening: Colonoscopy 01/05/2026 01/05/2021 Cholesterol Screening (Lipid Panel) 08/25/2029 08/25/2024, 02/20/2024, 12/26/2023, Additional history exists DTaP,Tdap,and Td Vaccines (3 - Td or Tdap) 09/28/2030 09/28/2020, 11/22/2009 Influenza Vaccine Completed 12/27/2023, , 12/15/2022, Additional history exists Pneumococcal Vaccine: 50+ Years Completed 03/03/2024, 05/11/2016 Pneumococcal Vaccine: Pediatrics (0 to 5 Years) and At-Risk Patients (6 to 64 Years) Completed 03/03/2024, 05/11/2016 HIB Vaccines Aged Out No longer eligi ble based on patient's age to complete this topic HPV Vaccines Aged Out No longer eligi ble based on patient's age to complete this topic Hepatitis A Vaccines Aged Out No long er eligible based on patient's age to complete this topic IPV Vaccines Aged Out No longer eligi ble based on patient's age to complete this topic MMR Vaccines Aged Out No longer eligi ble based on patient's age to complete this topic Meningococcal ACWY Vaccine Aged Out N o longer eligible based on patient's age to complete this topic Meningococcal B Vaccine Aged Out No l onger eligible based on patient's age to complete this topic RSV Immunization Patients Under 20 months Aged Out No longer eligible based on patient's age to complete this topic Varicella Vaccines Aged Out No longer eligible based on patient's age to complete this topic Medical Devices Implanted Type Area Tool Adjuster Device Identifier Shelf Expiration Date Model / Serial / Lot Knee Left: Knee Procedures Procedure Name Priority Date/Time Associated Diagnosis Comments ECG 12-LEAD Routine 09/05/2024 9:59 AM EDT Coronary artery disease involving prairie band coronary artery of prairie band heart without angina pectoris LIPID PANEL WITH REFLEX TO DIRECT LDL Routine 08/25/2024 9:48 AM EDT Coronary artery disease involving prairie band coronary artery of prairie band heart without angina pectoris Mixed hyperlipidemia XR CHEST 2 VIEWS Routine 06/23/2024 1:35 PM EST Chronic obstructive pulmonary disease with acute exacerbation (CMS/HCC V24, CMS/HCC V28) Productive cough CT LUNG SCREENING Routine 04/15/2024 7:0 5 AM EST Encounter for screening for malignant neoplasm of respiratory organs Nicotine dependence, cigarettes, uncomplicated HM ANNUAL BMP BLOOD TEST Routine 01/24/2024 HM COLONOSCOPY Routine 01/05/2021 from Last 3 Months or Most Recently Relevant to Health Maintenance Results * ECG 12 lead (09/05/2024 9:59 AM EDT) Ventricular Rate ECG 70 BPM GEMUSE Atrial Rate 70 BPM GEMUSE P-R Interval 168 ms GEMUSE QRS Duration 66 ms GEMUSE Q-T Interval 398 ms GEMUSE QTc 429 ms GEMUSE P Wave [place] 49 degrees GEMUSE R [place] 11 degrees GEMUSE T [place] 39 degrees GEMUSE ECG Interpretation Normal sinus rhythm Low voltage QRS Cannot rule out Anterior infarct (cited on or before 14-SEP-2015 ) Abnormal ECG When compared with ECG of 20-MAY-2023 13:23, Criteria for Inferior infarct are no longer Present Confirmed by Hayley GILMAN, TRAY ([id number]) on 09/05/2024 10:08:50 AM GEMUSE 09/05/2024 9:59 AM EDT 09/05/2024 10:08 AM EDT us Tray Gilman MD ECG ORDERABLES Final Result GEMUSE * (ABNORMAL) Lipid panel with reflex to direct LDL (08/25/2024 9:48 AM EDT) Cholesterol 130 0 - 200 mg/dL LAB CHEMISTRY METHOD 08/25/2024 3:29 PM EDT [facility] Triglycerides 156(H) 0 - 150 mg/dL LAB CHEMISTRY METHOD 08/25/2024 3:29 PM EDT [facility] HDL 48 >=40 mg/dL LAB CHEMISTRY METHOD 08/25/2024 3:29 PM EDT [facility] LDL Calculated 51 0 - 100 mg/dL LAB CHEMISTRY METHOD 08/25/2024 3:29 PM EDT [facility] VLDL Cholesterol Brett 31.2 mg/dL LAB CHEMISTRY METHOD 08/25/2024 3:29 PM EDT [facility] Non HDL Chol. (LDL+VLDL) 82 <145 mg/dL LAB CHEMISTRY METHOD 08/25/2024 3:29 PM EDT [facility] Chol/HDL Ratio 2.7 0.0 - 4.4 LAB CHEMISTRY METHOD 08/25/2024 3:29 PM EDT [facility] Blood Venous blood specimen / Unknown Venipuncture / Unknown 08/25/2024 9:48 AM EDT 08/25/2024 9:48 AM EDT us Tray Gilman MD LAB BLOOD ORDERABLES Final Resu lt [facility] [address] [place] [address], [place] [phone] * XR Chest 2 Views (06/23/2024 1:35 PM EST) Anatomical Region Laterality Modality Body Radiographic Stephani ging 06/23/2024 1:51 PM EST Impressions 06/23/2024 1:54 PM EST No focal lung consolidation. ??Subsegmental atelectasis in posterior lower lungs. -------- FINAL REPORT -------- Dictated By: Josiah Schmidt Dictated Date: 06/23/2024 13:51 ET Assigned Physician: Josiah Schmidt Reviewed and Electronically Signed By: Josiah Schmidt Signed Date: 06/23/2024 13:54 ET Workstation ID: [id number] Transcribed By: Self Edit Transcribed Date: 06/23/2024 13:54 ET Narrative 06/23/2024 1:54 PM EST XR CHEST 2 VIEWS Reason: persistent productive cough Comparison: Chest radiograph on March 02, 2022 FINDINGS: Lungs: No focal consolidation. ??Subsegmental atelectasis in the posterior lung bases. Pleura: No pleural effusion or pneumothorax. Heart/Mediastinum: Cardiomediastinal silhouette is within normal limits. Bones : No acute findings Procedure Note Josiah Schmidt MD - 06/23/2024 XR CHEST 2 VIEWS Reason: persistent productive cough Comparison: Chest radiograph on March 02, 2022 FINDINGS: Lungs: No focal consolidation. Subsegmental atelectasis in the posteriorlung bases. Pleura: No pleural effusion or pneumothorax. Heart/Mediastinum: Cardiomediastinal silhouette is within normal limits. Bones : No acute findings IMPRESSION: No focal lung consolidation. Subsegmental atelectasis in posterior lowerlungs. -------- FINAL REPORT -------- Dictated By: Josiah Schmidt Dictated Date: 06/23/2024 13:51 ET Assigned Physician: Josiah Schmidt Reviewed and Electronically Signed By: Josiah Schmidt Signed Date: 06/23/2024 13:54 ET Workstation ID: [id number] Transcribed By: Self Edit Transcribed Date: 06/23/2024 13:54 ET [facility] Yanelis MOULTON IMG XR PROCEDURES Final Result * CT Lung Screening (04/15/2024 7:05 AM EST) Anatomical Region Laterality Modality Chest Computed Tomogra phy 04/16/2024 2:52 PM EST Impressions 04/16/2024 3:02 PM EST Impression: No suspicious developing pulmonary nodule. No significant change. Lung-RADS Category: ??Lung-RADS 2: Nodule(s) with benign appearance or behavior. Continue annual screening with Low Dose Chest CT in 12 months. Recommendations: Continue annual screening with low-dose noncontrast chest CT in 12 months. Teleakosua MOULTON ([id number]) -------- FINAL REPORT -------- Dictated By: Madai Donald Dictated Date: 04/16/2024 14:52 ET Assigned Physician: Madai Donald Reviewed and Electronically Signed By: Madai Donald Signed Date: 04/16/2024 15:02 ET Workstation ID: [id number] Transcribed By: Self Edit Transcribed Date: 04/16/2024 14:52 ET Narrative 04/16/2024 3:02 PM EST History: ??63 year-old 67 pack-year current smoker, asymptomatic, for lung cancer screening. Comparison: 04/11/23 Technique: Helical volumetric imaging of the thorax was performed, using low- dose technique, without IV contrast. DLP: 158.31 mGy/cm ??CTDIvol: 4.83 mGy GE Sohu.compeed VCT Iterative reconstruction technique Findings: Lungs and Airways: The trachea and central bronchial tree remain patent. Patchy centrilobular emphysema is again noted. There are scattered small thin-walled lung cysts, unchanged. There are thin bandlike opacities in the right middle lobe and lingula, extending to the pleural surface, similar to previous, consistent with subsegmental atelectasis or scar. A 6 mm solid, noncalcified juxta fissural nodule is unchanged in the central left lower lobe (image 112 series 3). No suspicious developing nodule is identified. Pleura: No pleural or pericardial effusions are seen. Base of neck, mediastinum and heart: The heart remains normal in size. The thoracic aorta is normal in caliber. No developing thoracic lymphadenopathy is seen. Soft tissues: The overlying soft tissues are unremarkable. Abdomen: This study was performed without contrast and with lower than standard dose. These factors reduce the sensitivity for detection of small lesions in the upper abdomen. The hepatic parenchymal attenuation is diffusely diminished, partially imaged, consistent with fatty infiltration. Cholecystectomy clips are noted. A 27 x 20 mm right adrenal nodule has CT numbers compatible with an adenoma, unchanged. Diverticulosis of the partially imaged colon is seen. Procedure Note Madai Donald MD - 04/16/2024 History: 63 year-old 67 pack-year current smoker, asymptomatic, for lungcancer screening. Comparison: 04/11/23 Technique: Helical volumetric imaging of the thorax was performed, usinglow-dose technique, without IV contrast. DLP: 158.31 mGy/cm CTDIvol: 4.83 mGy GE Sohu.compeed VCT Iterative reconstruction technique Findings: Lungs and Airways: The trachea and central bronchial tree remain patent.Patchy centrilobular emphysema is again noted. There are scattered smallthin-walled lung cysts, unchanged. There are thin bandlike opacities inthe right middle lobe and lingula, extending to the pleural surface,similar to previous, consistent with subsegmental atelectasis or scar. A 6 mm solid, noncalcified juxta fissural nodule is unchanged in thecentral left lower lobe (image 112 series 3). No suspicious developingnodule is identified. Pleura: No pleural or pericardial effusions are seen. Base of neck, mediastinum and heart: The heart remains normal in size. Thethoracic aorta is normal in caliber. No developing thoraciclymphadenopathy is seen. Soft tissues: The overlying soft tissues are unremarkable. Abdomen: This study was performed without contrast and with lower thanstandard dose. These factors reduce the sensitivity for detection of smalllesions in the upper abdomen. The hepatic parenchymal attenuation isdiffusely diminished, partially imaged, consistent with fattyinfiltration. Cholecystectomy clips are noted. A 27 x 20 mm right adrenalnodule has CT numbers compatible with an adenoma, unchanged.Diverticulosis of the partially imaged colon is seen. IMPRESSION: Impression: No suspicious developing pulmonary nodule. No significant change. Lung-RADS Category: Lung-RADS 2: Nodule(s) with benign appearance orbehavior. Continue annual screening with Low Dose Chest CT in 12 months. Recommendations: Continue annual screening with low-dose noncontrast chestCT in 12 months. [place] ([id number]) -------- FINAL REPORT -------- Dictated By: Madai Donald Dictated Date: 04/16/2024 14:52 ET Assigned Physician: Madai Donald Reviewed and Electronically Signed By: Madai Donald Signed Date: 04/16/2024 15:02 ET Workstation ID: [id number] Transcribed By: Self Edit Transcribed Date: 04/16/2024 14:52 ET Cathi Webb MD IM CT PROCEDURES Final Result * Annual BMP Blood Test (01/24/2024) Pathologist [facility] Annual BMP Blood Test abstracted [facility] Provider HEALTH MAINTENANCE Final Result * Colonoscopy (01/05/2021) Pathologist [facility] Colonoscopy no interpretation , abstracted Anatomical Region Laterality Modality Other [facility] Provider HEALTH MAINTENANCE Final Result from Last 3 Months or Most Recently Relevant to Health Maintenance Insurance [facility] Care Teams Sharebroker Relationship Specialty Start Date End Date Madina Fry MD [address] [place] [id number] PCP - General Internal Medicine 03/24/24
--- OUTSIDE RECORDS SUMMARY | 2024-09-11 11:21 | XMS_ITS | Data Portability ---
Author Organization [place] - [facility], Allergy Address [address] [facility] [address] [place] [address] Care Team Providers Care Card Runner Name Role Phone ANCHOR-HETCOR PEDERSEN Primary Care Provider [phone] Assessment Encounter Date Assessment Date Assessment LastModified by Organization Details LastModified Time 11/16/2023 11/16/2023 63-year-old female with a history of allergies, continues to be abstinent with smoking, presents today with persistent ear blockage. I reassured her that her middle ears are well aerated. I did encourage her to try to cut down on gum chewing is much as possible. She tends to be most symptomatic in January, so we will proceed with follow-up then. [email or web address] Not available 11/19/2023 08:39:15 02/15/2024 02/15/2024 63-year-old female, former smoker, presents [...] instructions recorded. Reason for Referral None Reported. Results Created Date Observation Date Name Description Value Unit Range Abnormal Flag Note LastModifiedBy Organization Detail LastModifiedTime 12/20/19 24 06/06/2023 imagi ng/di agnos tic resul t No observ ation record ed. [email or web address] Not Available 19:14:57 12/20/19 24 07/16/2023 imagi ng/di agnos tic resul t No observ ation record ed. [email or web address] Not Available 19:15:00 12/20/19 24 08/21/2023 imagi ng/di agnos tic resul t No observ ation record ed. [email or web address] Not Available 19:15:04 12/20/19 24 03/24/2020 imagi ng/di agnos tic resul t No observ ation record ed. [email or web address] Not Available 19:15:12 Result Notes None recorded. Problems Name Problem SNOMED Code Status Onset Date Resolution Date Notes Provider Name and Address Organization Details Recorded Time [facility] ce of salivary secretion 32749290 Active 2019 [facility] valeri of salivary secretion ; Note: Date Diagnosed : 0 10:11 AM (K11.7) Not Available [facility] 4 02:52:26 Allergic rhinitis 59818259 Active 2020 Allergic rhinitis, unspecifi ed; Note: Date Diagnosed : 09/17/2020 2:26 PM (J30.9) Not Available [facility] 4 02:52:30 Tobacco user 465232235 Active 2020 Tobacco use; Note: Date Diagnosed : 09/17/2020 2:26 PM (Z72.0) Not Available [facility] 4 02:52:28 Gastroeso phageal reflux disease without esophagit is 766758956 Active 2022 Gastro-es ophageal reflux disease without esophagit is; Note: Date Diagnosed : 12/14/2022 12:43 PM (K21.9) Not Available [facility] 4 02:52:27 Dysphagia 40203337 Active 2022 Dysphagia , pharyngoe sophageal phase; Note: Date Diagnosed : 09/01/2022 11:54 AM (R13.14) Not Available [facility] 4 02:52:28 Itching of skin 651156753 Active 2022 Pruritus, unspecifi ed; Note: Date Diagnosed : 01/16/2023 2:15 PM (L29.9) Not Available [facility] 4 02:52:25 Deviated nasal septum 036264319 Active 2020 Deviated nasal septum; Note: Date Diagnosed : 09/17/2020 2:26 PM (J34.2) Not Available [facility] 4 02:52:29 Dysfuncti on of bilateral eustachia n tubes 03771694067 75631 Active 2023 LIOR HELLER MD [address] [place] [address], [facility] [place], [phone] , [facility] - [facility] 4 08:38:21 Pain of left temporoma ndibular joint 74669981318 512146 Active 2023 Arthralgi a of left temporoma ndibular joint; Note: Date Diagnosed : 08/22/2023 9:30 AM (M26.622) Not Available [facility] 4 02:52:27 Otalgia of left ear 9449743736 Active 2023 Otalgia, left ear; Note: Date Diagnosed : 08/22/2023 9:30 AM (H92.02) Not Available [facility] 4 02:52:28 Sensorine ural hearing loss of bilateral ears 670542386 Active 2023 Sensorine ural hearing loss, bilateral ; Note: Date Diagnosed : 08/21/2023 11:11 AM (H90.3) Not Available [facility] 02:52:31 Abnormal auditory perceptio n 51931160 Active 2023 LIOR HELLER MD [address] [place] [address], [facility] [place], [phone] , [place] - [facility] 11:18:00 Problem Notes None recorded. Procedures Surgical History Date Name Laterality Status Provider Name and Address Organization Details Recorded Time total knee replacement completed Jessie Lin [place] - [facility] 02/15/2024 09:26:37 Imaging Results Imaging Date Name Status LastModified by Organiz ation Details LastModified Time 06/06/2023 imaging/diag nostic result completed Information not available 12/20/2023 19:14:57 07/16/2023 imaging/diag nostic result completed Information not available 12/20/2023 19:15:00 08/21/2023 imaging/diag nostic result completed Information not available 12/20/2023 19:15:04 03/24/2020 imaging/diag nostic result completed Information not available 12/20/2023 19:15:12 Procedure Notes None recorded. Medical Equipment None Reported. Allergies Allergen ID Allergen Name Allergen Category Reaction Reaction Severity Criticality Documentation Date Start Date Code Code System Note Provider Name and Address Organization Details Recorded Time 627022 azithromy leonidas medicatio n hives Not available Not available 09/11/2023 44606 RxNorm React ion: other react ion, Hives ; Not Available [facility] 4 01:17:25 042662 amoxicill in medicatio n hives Not available Not available 09/11/2023 723 RxNorm React ion: other react ion, Hives ; Not Available [facility] 4 01:17:25 099755 sulfur medicatio n hives Not available Not available 09/11/2023 91678 RxNorm React ion: other react ion, Hives ; Not Available [facility] 4 01:17:27 Medications Name Sig Start Date Stop [...] a day 11/15 completed Medicati on ID: [id number] D uration Value: 14 Brand Name: acetic acid Sen d Method: E-Prescr ibed Sub s Allowed: subs OK Medic ationGen ericName : acetic acid Med ication ID: [id number] D uration Value: 14 Brand Name: acetic [...] a day 11/15 completed Medicati on ID: [id number] D uration Value: 30 Brand Name: omeprazo le Send Method: E-Prescr ibed Sub s Allowed: subs OK Speci al Instruct ion: TAKE ONE CAPSULE BY MOUTH ONCE A DAY 30-60 MINUTES BEFORE BREAKFAS T Medica tionGene ricName: colt chakraborty Medic ation ID: [id number] D uration Value: 30 Brand Name: colt chakraborty Send Method: E-Prescr ibed Sub s Allowed: subs OK Speci al Instruct ion: TAKE ONE CAPSULE BY MOUTH ONCE A DAY 30-60 MINUTES BEFORE BREAKFAS T Medica tionGene ricName: colt chakraborty Not Available Not Available Not Available acetamino [...] completed Not Available Not Available Not Available [facility] spacer USE DIRECTED WITH ADVAIR INHALER active Not Available Not Available No t Available Breo Ellipta 100 mcg-25 mcg/dose powder for inhalatio n TAKE 1 PUFF BY MOUTH EVERY DAY active Not Available Not Available No t Available Anoro Ellipta 62.5 mcg-25 mcg/actua tion powder for inhalatio n 11/15 completed Medicati on ID: [id number] B rand Name: Anoro Ellipta Send Method: E-Prescr ibed Sub s Allowed: subs OK Speci al Instruct ion: INHALE 62.5 MCG INTO THE LUNGS DAILY FOR 90 DAYS. Me dication GenericN orly: Anoro Ellipta Medicati on ID: [id number] B rand Name: Anoro Ellipta Send Method: E-Prescr ibed Sub s Allowed: subs OK Speci al Instruct ion: INHALE 62.5 MCG INTO THE LUNGS DAILY FOR 90 DAYS. Me dication GenericN orly: Anoro Ellipta Not Available Not Available Not Available Vitals Date Recorded Body height Body mass index (BMI) Body weight Provider Name and Address Organization Details Last Updated DateTime 11/16/2023 157.48 cm 44.8 kg/m2 102805.13 g Yany Holliday [place] - [facility] 11/16/2023 10:55:04 Date Recorded Body height Body weight Provider Name and Address Organization Details Last Updated DateTime 02/15/2024 157.48 cm 943422.13 g Jessie Lin [place] - [facility] 02/15/2024 09:24:21 Social History None recorded. Functional [...] SNOMED-CT Code Diagnosis ICD10 Code Diagnosis Note [id number] LIOR HELLER MD [facility] [address] [address] 11/16/2023 10:41:05 11/16/2023 11:13:20 Allergic rhinitis 80331522 J30.9 Dysfunctio n of bilateral eustachian tubes 3776306058 701559 H69.93 [id number] LIOR HELLER MD [facility] [address] [address] 02/15/2024 09:13:30 02/15/2024 09:58:19 Allergic rhinitis 77319092 J30.9 Abnormal a uditory perception 13298923 H93.299 Health Concerns Section Related Observation LastModified by Organization Detai ls LastModified Time None Recorded Concern Status LastModified by Organization Details LastModified Time None Recorded Advance Directives Directive None Recorded Payers Insurance Date Sequence Insurance Name Policy Number Policy Lang Covered Member ID Lang Member ID Guarantor Name 02/15/2024 1 [facility] [id number] 1 Verónica Ojeda [id number] Verónica Ojeda Notes Date Note Type Note Provider Name and Address Organization Details Recorded Time 11/16/2023 text/html Patient still fe els plugged. She has been using the Neti pot for allergies. The nasal spray is not helping as much. She has had no further. smoking PV: : 62 year old female presents [...] and bites hard candies. LIOR HELLER MD [address] [place] [address], [phone] - [facility] 11/19/2023 08:39:31 02/15/2024 text/html Patient still fe els plugged [...] and bites hard candies. LIOR HELLER MD [address] [place] [address], [phone], [facility] - [facility] 02/16/2024 11:20:43 OBGyn Episode No OBEpisode recorded.
== END 2024-09-11 11:09 | disposition home or self-care (01) ==
LOC: HO.HOS 10:19
PROVIDERS: PCP Student in an Organized Health Care Education/Training Program; Visit Provider Orthopaedic Surgery
DX: M17.11 Unilateral primary osteoarthritis, right knee (principal); M75.42 Impingement syndrome of left shoulder
CPT/HCPCS: 20610; 99213

== ENCOUNTER → 2024-09-11 10:19 | Outpatient (BNVA) | payer OTHER, SELFPAY | PROVIDERS: PCP Student in an Organized Health Care Education/Training Program; Visit Provider Orthopaedic Surgery | DX: M17.11 Unilateral primary osteoarthritis, right knee (principal); M75.42 Impingement syndrome of left shoulder | CPT/HCPCS: 20610; J1010; J2003 ==

== ENCOUNTER 2024-12-09 12:52 | Outpatient (AMB) | payer OTHER, SELFPAY ==
--- NOTE | 2024-12-09 13:01 | A.OFFVIS_ITS ---
Vital Signs 12/09/24 13:04 Height 5 ft 2 in Weight 248 lb BMI 45.4 Intake Visit Reasons: Inj- Rt knee last inj: 09/09/24 Intake Note: Verónica is a 64 year old female who presents with complaints of right knee pain. She describes her knee pain as sharp in nature. She did undergo left total knee replacement surgery several years ago. She reports minimal discomfort in h er left knee. She wishes to hold off on right total knee replacement surgery for as long as possible. She has tried Tylenol and anti-inflammatory medicines which gave her only mild relief. ated that she is going to a at home physical therapy and seeing some improvements. Allergies amoxicillin Allergy (Intermediate, Verified 12/09/24 13:04) Rash azithromycin Allergy (Intermediate, Verified 12/09/24 13:04) Rash Sulfa (Sulfonamide Antibiotics) Allergy (Intermediate, Verified 12/09/24 13:04) Rash Medication List - Last Reconciled 12/09/24 by Bertrand Sanford MD albuterol sulfate 90 mcg/actuation inhalation clindamycin HCl 600 mg (2 x 300 mg) PO ONCE esomeprazole magnesium 20 mg PO DAILY fluticasone furoate-vilanterol 100-25 mcg/dose (Breo Ellipta) 1 inh inhalation DAILY nicotine (polacrilex) mg PO pravastatin 20 mg PO DAILY PFSH Surgical History (Updated 09/10/23 @ 08:50 by Jocelin Grimes CMA) History of lumpectomy of both breasts Hx of right knee surgery Hx of hysterectomy Hx of left knee surgery Social History (Updated 09/10/23 @ 08:50 by Jocelin Grimes CMA) Patient Tobacco Use Status: Former Tobacco user Current occupational status: retired Physical Exam Vital Signs: BMI result Body Mass Index 45.4 Const Other: Well-nourished well-developed very friendly female awake alert and oriented x3 in no acute distress Extrem Other: Right knee examination shows a minimal effusion, palpable crepitus with range motion, pain with range of motion, no instability Office Procedures AMB Joint Injection/Aspiration Joint Injection/Aspiration Primary Site: right knee Prep: site was prepped using aseptic technique Injected: 40 mg of, DepoMedrol and 1% plain lidocaine Procedure: The patient tolerated the procedure well Coding 67369 - Large joint Procedure code (CPT) selection complete Assessment & Plan Assessment & Plan (1) Arthritis of right knee: Code(s): M17.11 - Unilateral primary osteoarthritis, right knee Category: Medical Plan Verónica presents with right knee pain due to degenerative joint disease. The risks and benefits of a right knee cortisone injection were discussed at length with the patient. The patient wished to proceed. She tolerated the injection well. She will continue with her home exercise program. She will contact me prior to her follow-up appointment in 3 months should any questions or concerns arise. Feel free to call me at any time should questions regarding her orthopedic management arise. I spent 20 minutes in reviewing the patient's records and imaging studies, seeing the patient and documenting in the medical record. Orders: Orders AMB Joint Injection/Aspiration Today M17.11 - Unilateral primary osteoarthritis, right knee Coding Level of Care Code Est Pt Level 3 (31560) Complex EM visit Add On G2211 Diagnoses Arthritis of right knee M17.11 CPT Codes Coding - 09010 Large joint: 35133 - Large joint ([id number])
[2024-12-09 13:04] VITALS: BMI 45.4
--- OUTSIDE RECORDS SUMMARY | 2024-12-09 13:33 | XMS_ITS | Clinical Summary ---
Author Organization [facility] Address [address] [address] Phone Care Team Providers Care Tile Grader Name Role Phone Angel Crouch Primary Care Provider [phone] Allergies Active Allergy Reactions Criticality Noted Date Comments Amoxicillin Hives 12/26/2016 Azithromycin Hives 12/26/2016 Levofloxacin 12/26/2016 Sulfa (Sulfonamide Antibiotics) Hives 12/2022 Medications therapeutic multivitamin tablet Take 1 tablet by mouth daily. Active cholecalciferol, vitamin D3, (VITAMIN D3 ORAL) Take by mouth. Active Bacillus coagulans-inulin 1 billion-250 cell-mg Cap Take 250 mg by mouth daily. Active Social History Tobacco Use Types Packs/Day Years Used Date Smoking Tobacco: Every Day Cigarettes Smokeless Tobacco: Never Tobacco Cessation:Ready to Q uit: Not Asked; Counseling Given: Not Answered Alcohol Use Standard Drinks/Week Comments Not Currently 0 (1 standard drink = 0.6 oz pur e alcohol) Education Answer Date Recorded Are you interested in more education? Not on urmila e 01/06/2023 Are you concerned about learning? Not on file 01/06/2023 No 01/06/2023 No 01/06/2023 Digital Access Answer Date Recorded No 01/06/2023 No 01/06/2023 Reliable internet access at home? Not on file 01/06/2023 Device with a working camera? Not on file Comments Unknown Sex and Gender Information Value Date Recorded Sex Assigned at Not on file Legal Sex Female 10:53 AM EDT Gender Identity Not on file Sexual Orientation Not on file Last Filed Vital Signs Vital Sign Reading Time Taken Comments Blood Pressure 114/81 01/06/2023 12:06 PM EDT Pulse 76 01/06/2023 12:06 PM EDT Temperature 36.1 C (97 F) 01/06/2023 12:06 PM EDT Respiratory Rate 16 01/06/2023 12:06 PM EDT Oxygen Saturation 96% 01/06/2023 12:06 PM EDT Inhaled Oxygen Concentration - - Weight - - Height - - Body Mass Index - - Plan of Treatment Health Maintenance Due Date Last Done Comments LIPID PANEL 1962 DEPRESSION SCREENING 1974 SMOKING Hx and SMOKELESS TOBACCO SCREENING 09/08/1975 HEPATITIS C SCREENING 1980 HIV ONE-TIME SCREENING (18-6 5 YEARS) 1980 PAP SMEAR 09/08/1983 MAMMOGRAM 2002 COLOGUARD 09/08/2007 COLONOSCOPY 09/08/2007 COLORECTAL CANCER SCREENING 09/08/2007 FIT TEST 09/08/2007 FOBT 09/08/2007 SIGMOIDOSCOPY 09/08/2007 VIRTUAL COLONOSCOPY 09/08/2007 ZOSTER VACCINES (1 of 2) 2012 PNEUMOCOCCAL VACCINES (50+ years) (2 of 2 - PCV) 05/11/2017 05/11/2016 COVID-19 VACCINE (2023-2 5 season) 2023 03/27/2021, 08/11/2020, 07/17/2020 Adult Td,Tdap Booster 09/28/2030 09/28/2020 , 11/22/2009 RSV VACCINE (1 - 1-dose 75+ series) 2037 HEPATITIS A VACCINES Aged Out No long er eligible based on patient's age to complete this topic HIB VACCINES Aged Out No longer eligi ble based on patient's age to complete this topic MENINGOCOCCAL VACCINES (ACWY) Aged Out No longer eligible based on patient's age to complete this topic MENINGOCOCCAL VACCINES (B) Aged Out N o longer eligible based on patient's age to complete this topic Medical Devices Not on file Insurance [facility] [address] [place], [place] [id number] [place] [id number] [place] [id number] [facility] Care Teams Tile Grader Relationship Specialty Start Date End Date Angel Crouch DO [address] [place] [id number] PCP - General Family Medicine 01/06/23 Additional Source Comments The information contained in this document represents components of the legal health record. It is not the complete legal health record.[facility]
--- OUTSIDE RECORDS SUMMARY | 2024-12-09 13:33 | XMS_ITS | Clinical Summary ---
Author Organization [facility] Address [address] [place] [address] Care Team Providers Care Import/Export Administrator Name Role Phone Unavailable Primary Care Provider [...] (1 of 2) 2012 Influenza Vaccine (#1) 2024 06/08/2007 RSV Adult > 60+ Yrs or [...] Group Subscriber ID Effective Dates Phone Address [facility] [id number] 2021-Present [address] [facility] [address] [place] [address] O
--- OUTSIDE RECORDS SUMMARY | 2024-12-09 13:34 | XMS_ITS ---
Author Name [facility] Organization Unknown History of Medication Use Medication Directions Dispensed Refills Start Date End Date Stat us cefpodoxime 200 mg tablet TAKE 1 TABLET BY MOUTH TWICE A DAY 11/08/2022 completed trazodone 50 mg tablet TAKE 1 TABLET BY MOUTH AT BEDTIME FOR INSOMNIA 11/08/2022 completed Advair HFA 230 mcg-21 mcg/actuation aerosol inhaler PLEASE SEE ATTACHED FOR DETAILED DIRECTIONS active Allergies Allergen Reaction Severity Comment Documented Date Source Statu s AMOXICILLIN [facility] LEVAQUIN [facility] SULFA (SULFONAMIDE ANTIBIOTICS) [facility] ZITHROMAX [facility] Problems Problem Status Onset Date Problem Type Date of Resoluti on Source Impingement syndrome of left shoulder region active 2022-08-03 ProblemAct [facility] ECT Tear of left rotator cuff active 2022-08-03 ProblemAct [facility] Encounters Encounter Type Encounter Reason Primary Diagnosis Location Date Ambulatory [facility] 2023 Ambulatory [facility] 11/20/2022 Ambulatory [facility] 11/08/2022 Ambulatory [facility] 11/08/2022 Ambulatory [facility] 10/10/2022
--- OUTSIDE RECORDS SUMMARY | 2024-12-09 13:34 | XMS_ITS | Clinical Summary ---
Author Organization [facility] Address [address] [place] [address] Care Team Providers Care Farm Machine Operator Name Role Phone Unavailable Primary Care Provider [...] - 2023-2 5 season) 2023 Influenza (#1) 2024 RSV (1 - 1-dose 75+ series) 2037 HPV Vaccine (No Doses Required) Completed Hep A Aged Out No longer eligi [...]
--- OUTSIDE RECORDS SUMMARY | 2024-12-09 13:34 | XMS_ITS | Clinical Summary ---
Author Organization [facility] Address [address] [place] [address] Phone Care Team Providers Care Skimmer Scoop Operator Name Role Phone Madina Fry MD Primary [...] dermatitis Medications aspirin 81 mg chewable tablet Acti ve calcium/magnesi um/vit D3 (CALCIUM MAGNESIUM + D ORAL) Calcium-Magnes ium-Vitamin D (CALCIUM MAGNESIUM OR) Take by mouth daily. Active Lactobacillus acidophilus (PROBIOTIC ORAL) Active Bacillus coagulans-inuli n 1 billion-250 cell-mg capsule Take 250 mg by mouth daily. Active acetaminophen (TYLENOL) 500 mg tablet 09/12/19 19 Active inhalat.spacing dev,large mask spacer Inhale 1 each by mouth. 02/10/20 24 Active dexAMETHasone (DECADRON) 4 mg tablet Take 1 tablet (4 mg total) by mouth 2 (two) times a day. 05/15/19 18 Active multivitamin (multivitamin-i ujan-minerals) tablet Take 1 tablet by mouth daily. Active predniSONE (DELTASONE) 10 mg tablet Take 2 tabs PO daily for 3 days then 1 tab PO daily for 4 days 10 tablet 06/23/19 25 Active albuterol HFA (PROAIR HFA ; PROVENTIL HFA ; VENTOLIN HFA) 90 mcg/actuation inhalerIndicati ons:Chronic obstructive pulmonary disease with acute exacerbation ([facility] [place] [facility] [place]) Inhale 2 puffs by mouth every 4 (four) hours if needed for wheezing. 6.7 g 2 06/23/19 25 Active Additional Information Patient not taking.Reported on 09/05/2024 rosuvastatin (CRESTOR) 40 mg tablet Take 1 tablet (40 mg total) by mouth 1 (one) time each day. 90 each 1 08/27/19 25 Active pantoprazole (PROTONIX) 40 mg EC tablet Take 1 tablet (40 mg total) by mouth 1 (one) time each day. 90 each 12/02/19 25 025 Active semaglutide (Wegovy) 0.25 mg/0.5 mL injection pen Inject 0.25 mg under the skin every 7 (seven) days for 28 days. 2 mL 12/04/19 25 025 Active pantoprazole (PROTONIX) 40 mg EC tablet TAKE 1 TABLET BY MOUTH EVERY DAY 90 tablet 1 05/05/19 25 025 Discontinued Hospital, Clinic, or Other Facility Administered Medication Ordered Dose Route Frequency Start Date End Date Status lidocaine (PF) (XYLOCAINE-MPF) 1 % injection 0.5 mLIndications:Planta r fasciitis .5 mL inj Once PRN Procedure 11/24/2024 11/24/2024 Ended triamcinolone acetonide (KENALOG-40) 40 mg/mL injection 40 mgIndications:Planta r fasciitis 40 mg IAtc Once PRN Procedure 11/24/2024 11/24/2024 Ended Active Problems Problem Noted Date Diagnosed Date Former smoker 09/05/2024 Class 3 severe obesity with serious comorbidity and body mass index (BMI) of 45.0 to 49.9 in adult ([facility] V24, [facility] V28) 09/04/2024 Class 3 severe obesity with serious comorbidity and body mass index (BMI) of 45.0 to 49.9 in adult ([facility] [place], [facility] V28) 04/07/2024 Allergic rhinitis 01/25/2024 Chronic obstructive pulmonar y disease ([facility], [facility] V28) 01/25/2024 Nocturnal hypoxia 01/25/2024 Nocturnal hypoxia 12/28/2023 Overview (02/11/2024): Overnight oximetry done on 12/17/2023 showed: 1. Lowest oxygen saturation 81%. 2. Spent time less than 88% was 8 minutes. 3. Patient qualifies for oxygen at night. 4. ANTOLIN is 34. May have sleep apnea. Last Assessment & Plan: Sent to [facility] oxygen order was 2 L. Obtain home sleep study to evaluate for sleep apnea patient have significant symptoms as well. Abnormal Q waves on electrocardiogram 07/17/2023 Coronary artery disease invo lving [place] coronary artery of [place] heart without angina pectoris 07/17/2023 Equivocal stress [...] than 25,000 Anxiety 08/01/2016 Simple chronic bronchitis ([facility], [facility] V28) 12/24/2015 Fatty liver disease, nonalcoholic 06/30/2013 [...] patient does not tolerate Prilosec. Morbid obesity ([facility], [facility] V28) 2005 Diffuse cystic mastopathy 07/27/2005 Resolved Problems Problem Noted Date Diagnosed Date Resolved Date S/P knee replacement 02/25/2019 024 Encounters Date Type Department Care Team Description 11/24/2024 9:00 AM EDT Office Visit Orthopedic Surgery - [address] [phone] Bryan Ceja, DPM Pain in toes of both feet (Primary Dx); Onychomycosis; Equinus contracture of right ankle; Pes planus of both feet; Plantar fasciitis from Last 3 Months Immunizations Name Administration Dates Next Due Hepatitis B (Pedujof-A-Hvqtn , Recombivax HB-Adult) 19yo and older 03/28/2011,03/28/2009 [...] JOINT REPLACEMENT PROCEDURE:JOINT REPLACEMENT BREAST BIOPSY PROCEDURE: FL BIOPSY BREAST OPEN INCISIONAL HYSTERECTOMY 2004 PROCEDURE: FL VAGINAL HYSTERECTOMY UTERUS 250 GM/< SALPINGOOPHORECTOMY 2004 PROCEDURE: FL LAPAROSCOPY W/RMVL ADNEXAL STRUCTURES; COMMENT: right ESOPHAGOGASTRODUODENOSCOPY 07/24/2011 PROCEDURE: FL ESOPHAGOGASTRODUODENOSCOPY TRANSORAL DIAGNOSTIC; COMMENT: hiatus hernia FLEXIBLE SIGMOIDOSCOPY PROCEDURE: FL SIGMOIDOSCOPY FLX DX W/COLLJ SPEC BR/WA IF PFRMD; COMMENT: adenoma and tics; full colonoscopy in 3 yrs COLONOSCOPY 10/11/11 [facility] PROCEDURE: HISTORICAL COLONOSCOPY; COMMENT: tics; repeat in ten yrs under propofol KNEE SURGERY 10/17/2017 Left PROCEDURE: HISTORICAL KNEE SURGERY; COMMENT: Arthroscopy TOTAL KNEE ARTHROPLASTY 09/09/2018 Left PROCEDURE: HISTORICAL TOTAL KNEE REPLACE ESOPHAGOGASTRODUODENOSCOPY 01/05/2021 PROCEDURE: FL EGD TRANSORAL BIOPSY SINGLE/MULTIPLE; COMMENT: small hiatal [...] Breast cancer Sister 3 Diagnosed at a 37 Relation Name Status Comments Brother Alive [...] for your loved ones. For example, child life therapist or elderly care for an older adult? [...] 72 09/05/2024 9:52 AM EDT Temperature 36.5 C (97.7 F) 09/02/2024 8:06 AM EDT Respiratory Rate 18 06/23/2024 1:06 PM EST Oxygen Saturation 95% 09/05/2024 9:52 AM EDT Inhaled Oxygen Concentration - - Weight 114 kg (251 lb) 09/05/2024 9:52 AM EDT Height 157.5 cm (5' 2 ) 09/05/2024 9:52 AM EDT Body Mass Index 45.91 09/05/2024 9:52 AM EDT Plan of Treatment Upcoming Encounters Date Type Department Care Team (Late st Contact Info) Description 01/22/2025 9:15 AM EDT Office Visit Bariatric Surgery [facility] [address] [phone] Horacio Duque MD [address] [address] 02/17/2025 8:30 AM EDT Office Visit Orthopedic Surgery [facility] 250 175 [facility] [address] [place] [id number] Bryan Ceja DPM [address] [address] 03/04/2025 8:00 AM EST Office Visit Adult Medicine [facility] [address] [place] [address] Madina Fry MD [address] [place] [address] 03/09/2025 7:40 AM EST Office Visit [facility] [address] [phone] Cristiana Ho, PEGGY 300 [facility] [address] [place] [address] Health Maintenance Due Date Last Done Comments Breast Cancer Screening 1960 Hepatitis B Vaccines (3 of 3 - 19+ 3-dose series) 05/23/2011 03/28/2011, 03/28/2009 Zoster Vaccines (1 of 2) 2012 HIV Screening 04/06/2022 Hepatitis C Screening 04/06/2022 RSV Immunization Adult Patients (1 - Risk 60-74 years 1-dose series) 2022 COVID-19 Vaccine ( season) 2024 01/21/2024, 01/21/2024, 01/19/2023, Additional history exists Depression Screening 04/30/2024 02/26/2024 Influenza Vaccine (#1) 2024 , 01/17/2023, 12/15/2022, Additional history exists Hypertension/CHF/CAD Annual BMP Blood Test 02/19/2025 02/20/2024, 01/24/2024, 01/24/2024 Social Influencers of Health Screening 02/25/2025 02/26/2024 Lung Cancer Screening (Low Dose CT) 04/15/2025 04/15/2024, 04/24/2023, 04/06/2022, Additional history exists Colorectal Cancer Screening: Colonoscopy 01/05/2026 01/05/2021 Cholesterol Screening (Lipid Panel) 08/25/2029 08/25/2024, 02/20/2024, 12/26/2023, Additional history exists DTaP,Tdap,and Td Vaccines (3 - Td or Tdap) 09/28/2030 09/28/2020, 11/22/2009 Pneumococcal Vaccine: 50+ Years Completed 03/03/2024, 05/11/2016 HIB Vaccines Aged Out [...] this topic Medical Devices Implanted Type Area Team Assistant Device Identifier Shelf Expiration Date Model / Serial / Lot Knee Left: Knee Procedures Procedure Name Priority Date/Time Associated Diagnosis Comments INJECTION TENDON OR LIGAMENT Routine 11/24/2024 9:00 AM EDT Plantar fasciitis LIPID PANEL WITH REFLEX TO DIRECT LDL Routine 08/25/2024 9:48 AM EDT Coronary artery disease involving [place] coronary artery of [place] heart without angina pectoris Mixed hyperlipidemia CT LUNG SCREENING Routine 04/15/2024 7:0 5 AM EST Encounter for screening for malignant neoplasm of respiratory organs Nicotine dependence, cigarettes, uncomplicated ANNUAL BMP BLOOD TEST Routine 01/24/2024 COLONOSCOPY Routine 01/05/2021 from Last 3 Months or Most Recently Relevant to Health Maintenance Results * Injection tendon or ligament (11/24/2024 9:00 AM EDT) Narrative Bryan Ceja DPM - 11/24/2024 9:00 AM EDT Bryan Ceja DPM 11/24/2024 6:10 PM Injection tendon or ligament Indications: pain Details: 25 G needle Medications: 0.5 mL lidocaine (PF) 1 %; 40 mg triamcinolone acetonide 40 mg/mL Informed Consent: Laterality: Right Bryan Ceja DPM IN CLINIC/BEDSIDE ORDERABLE S Final Result * (ABNORMAL) Lipid panel with reflex to direct LDL (08/25/2024 9:48 AM EDT) Cholesterol 130 0 - 200 mg/dL LAB CHEMISTRY METHOD 08/25/2024 3:29 PM EDT [facility] Triglycerides 156(H) 0 - 150 mg/dL LAB CHEMISTRY METHOD 08/25/2024 3:29 PM EDT [facility] HDL 48 >=40 mg/dL LAB CHEMISTRY METHOD 08/25/2024 3:29 PM EDT [facility] LDL Calculated 51 0 - 100 mg/dL LAB CHEMISTRY METHOD 08/25/2024 3:29 PM EDT [facility] VLDL Cholesterol Brett 31.2 mg/dL LAB CHEMISTRY METHOD 08/25/2024 3:29 PM EDT [facility] Non HDL Chol. (LDL+VLDL) 82 <145 mg/dL LAB CHEMISTRY METHOD 08/25/2024 3:29 PM EDT [facility] Chol/HDL Ratio 2.7 0.0 - 4.4 LAB CHEMISTRY METHOD 08/25/2024 3:29 PM EDT [facility] Blood Venous blood specimen / Unknown Venipuncture / Unknown 08/25/2024 9:48 AM EDT 08/25/2024 9:48 AM EDT Tray Beavers MD LAB BLOOD ORDERABLES Final Resu lt [facility] [address] [place] [address], [place] [phone] * CT Lung Screening (04/15/2024 7:05 AM EST) Anatomical Region Laterality Modality Chest Computed Tomogra phy 04/16/2024 2:52 PM EST Impressions 04/16/2024 3:02 PM EST Impression: No suspicious developing pulmonary nodule. No significant change. Lung-RADS Category: Lung-RADS 2: Nodule(s) with benign appearance or behavior. Continue annual screening with Low Dose Chest CT in 12 months. Recommendations: Continue annual screening with low-dose noncontrast chest CT in 12 months. [employer] [place] ([id number]) -------- FINAL REPORT -------- Dictated By: Madai Donald Dictated Date: 04/16/2024 14:52 ET Assigned Physician: Madai Donald Reviewed and Electronically Signed By: Madai Donald Signed Date: 04/16/2024 15:02 ET Workstation ID: [id number] Transcribed By: Self Edit Transcribed Date: 04/16/2024 14:52 ET Narrative 04/16/2024 3:02 PM EST History: 63 year-old 67 pack-year current smoker, asymptomatic, for lung cancer screening. Comparison: 04/11/23 Technique: Helical volumetric imaging of the thorax was performed, using low- dose technique, without IV contrast. DLP: 158.31 mGy/cm CTDIvol: 4.83 mGy PlayJampeed VCT Iterative reconstruction technique Findings: Lungs and [...] contrast. DLP: 158.31 mGy/cm CTDIvol: 4.83 mGy FlipasteT Iterative reconstruction technique Findings: Lungs and Airways: [...] noncontrast chestCT in 12 months. [employer] [place] ([id number]) -------- FINAL REPORT -------- Dictated By: Madai Donald Dictated Date: 04/16/2024 14:52 ET Assigned Physician: Madai Donald Reviewed and Electronically Signed By: Madai Donald Signed Date: 04/16/2024 15:02 ET Workstation ID: [id number] Transcribed By: Self Edit Transcribed Date: 04/16/2024 14:52 ET Cathi Webb MD IMG CT PROCEDURES Final Result * Annual BMP Blood Test (01/24/2024) Annual BMP Blood Test abstracted Historical Provider HEALTH MAINTENANCE Final Result * Colonoscopy (01/05/2021) Colonoscopy no interpretation , abstracted Anatomical Region Laterality Modality Other Historical Provider HEALTH MAINTENANCE Final Result from Last 3 Months or Most Recently Relevant to Health Maintenance Insurance [facility] Care Teams Skimmer Scoop Operator Relationship Specialty Start Date End Date Madina Fry MD [address] [place] [id number] PCP - General Internal Medicine 03/24/24
== END 2024-12-09 13:29 | disposition home or self-care (01) ==
LOC: HO.HOS 12:53
PROVIDERS: PCP Student in an Organized Health Care Education/Training Program; Visit Provider Orthopaedic Surgery
DX: M17.11 Unilateral primary osteoarthritis, right knee (principal)
CPT/HCPCS: 20610; 99213

== ENCOUNTER → 2024-12-09 12:52 | Outpatient (BNVA) | payer OTHER, SELFPAY | PROVIDERS: PCP Student in an Organized Health Care Education/Training Program; Visit Provider Orthopaedic Surgery | DX: M17.11 Unilateral primary osteoarthritis, right knee (principal); Z96.652 Presence of left artificial knee joint | CPT/HCPCS: 20610; J1010; J2003 ==

== ENCOUNTER 2024-12-24 08:08 | Outpatient (AMB) | payer OTHER, SELFPAY ==
--- NOTE | 2024-12-24 08:17 | A.OFFVIS_ITS ---
Vital Signs 12/24/24 08:22 Height 5 ft 2 in Weight 248 lb BMI 45.4 Intake Visit Reasons: right shoulder injection Intake Note: Verónica is a 64 year old female right hand dominant who presents with complaints of right shoulder pain. She describes her pain as sharp in nature. She has done physical therapy exercises which aggravated her pain. She has also tried Tylenol and anti-inflammatory medicines which gave her minimal relief. She denies any weakness. ises. Allergies amoxicillin Allergy (Intermediate, Verified 12/24/24 08:22) Rash azithromycin Allergy (Intermediate, Verified 12/24/24 08:22) Rash Sulfa (Sulfonamide Antibiotics) Allergy (Intermediate, Verified 12/24/24 08:22) Rash Medication List - Last Reconciled 12/24/24 by Bertrand Sanford MD albuterol sulfate 90 mcg/actuation inhalation clindamycin HCl 600 mg (2 x 300 mg) PO ONCE esomeprazole magnesium 20 mg PO DAILY fluticasone furoate-vilanterol 100-25 mcg/dose (Breo Ellipta) 1 inh inhalation DAILY nicotine (polacrilex) mg PO pravastatin 20 mg PO DAILY PFSH Surgical History (Updated 09/10/23 @ 08:50 by Jocelin Grimes CMA) History of lumpectomy of both breasts Hx of right knee surgery Hx of hysterectomy Hx of left knee surgery Social History (Updated 09/10/23 @ 08:50 by Jocelin Grimes CMA) Patient Tobacco Use Status: Former Tobacco user Current occupational status: retired Physical Exam Vital Signs: BMI result Body Mass Index 45.4 Const Other: Well-nourished well-developed very friendly female awake alert and oriented x3 in no acute distress Extrem Other: Right shoulder examination shows slightly decreased range of motion when compared to her left shoulder, 4+ out of 5 strength with supraspinatus testing, positive impingement signs, no instability Office Procedures AMB Joint Injection/Aspiration Joint Injection/Aspiration Primary Site: right shoulder Prep: site was prepped using aseptic technique Injected: 40 mg of, DepoMedrol and 1% plain lidocaine Procedure: The patient tolerated the procedure well Coding 71777 - Large joint Procedure code (CPT) selection complete Assessment & Plan Assessment & Plan (1) Impingement of right shoulder: Code(s): M25.811 - Other specified joint disorders, right shoulder Category: Medical Plan Mrs. Ojeda presents with right shoulder pain due to impingement syndrome. The risks and benefits of a right shoulder cortisone injection were discussed at length with the patient. The patient wished to proceed. She tolerated the injection well. She will continue with her home stretching program. She will contact me prior to her follow-up appointment in 3 months should any questions o r concerns arise. Feel free to call me at any time should questions regarding her orthopedic management arise. I spent 21 minutes in reviewing the patient's records and imaging studies, seeing the patient and documenting in the medical record. Orders: Orders AMB Joint Injection/Aspiration Today M25.811 - Other specified joint disorders, right shoulder Coding Level of Care Code Est Pt Level 3 (24859) Complex EM visit Add On G2211 Diagnoses Impingement of right shoulder M25.811 CPT Codes Coding - 65290 Large joint: 81941 - Large joint ([id number])
[2024-12-24 08:22] VITALS: BMI 45.4
--- OUTSIDE RECORDS SUMMARY | 2024-12-24 08:27 | XMS_ITS | Clinical Summary ---
Author Organization [facility] Address [address] [address] Phone Care Team Providers Care Vinegar Maker Name Role Phone Angel Crouch Primary Care Provider [phone] Allergies Active Allergy Reactions Criticality Noted Date [...] Devices Not on file Insurance [facility] [place] [address] [place] [address] [place] [place] [address] [place] [address] [facility] Care Teams Vinegar Maker Relationship Specialty Start Date End Date Angel Crouch DO [address] [place] [phone] PCP - General Family Medicine 01/06/23 Additional Source Comments The information contained in this document represents components of the legal health record. It is not the complete legal health record.[facility]
--- OUTSIDE RECORDS SUMMARY | 2024-12-24 08:27 | XMS_ITS | Clinical Summary ---
Author Organization [facility] Address [address] [place] [address] Care Team Providers Care Process Coordinator Name Role Phone Unavailable Primary Care Provider [...] Group Subscriber ID Effective Dates Phone Address [facility] [id number] 2021-Present [address] [facility] [address] [place] [address] O
--- OUTSIDE RECORDS SUMMARY | 2024-12-24 08:27 | XMS_ITS | Clinical Summary ---
Author Organization [facility] Address [address] [place] [address] Phone Care Team Providers Care Catholic Priest Name Role Phone Madina Fry MD Primary [...] a day. 05/15/19 18 Active multivitamin (multivitamin-i juan-minerals) tablet Take 1 tablet by mouth daily. Active predniSONE (DELTASONE) 10 mg tablet Take 2 tabs PO daily for 3 days then 1 tab PO daily for 4 days 10 tablet 06/23/19 25 Active albuterol HFA (PROAIR HFA ; PROVENTIL HFA ; VENTOLIN HFA) 90 mcg/actuation inhalerIndicati ons:Chronic obstructive pulmonary disease with acute exacerbation (CMS/HCC V24, CMS/HCC V28) Inhale 2 puffs by mouth every [...] days. 2 mL 12/04/19 25 025 Active tirzepatide, weight loss, (Zepbound) 2.5 mg/0.5 mL injection Inject 0.5 mL (2.5 mg total) under the skin every 7 (seven) days for 28 days. 2 mL 12/18/19 25 025 Active pantoprazole (PROTONIX) 40 mg [...] (BMI) of 45.0 to 49.9 in adult ([facility] V24, [facility] V28) 09/04/2024 Class 3 severe obesity with serious comorbidity and body mass index (BMI) of 45.0 to 49.9 in adult ([facility] V24, [facility] V28) 04/07/2024 Allergic rhinitis 01/25/2024 Chronic obstructive pulmonar y disease ([facility] V24, [facility] V28) 01/25/2024 Nocturnal hypoxia 01/25/2024 Nocturnal hypoxia 12/28/2023 Overview (02/11/2024): Overnight oximetry done on 12/17/2023 showed: 1. Lowest oxygen saturation 81%. 2. Spent time less than 88% was 8 minutes. 3. Patient qualifies for oxygen at night. 4. ANTOLIN is 34. May have sleep apnea. Last Assessment & Plan: Sent to [facility] oxygen order was 2 L. Obtain home sleep study to evaluate for sleep apnea patient have significant symptoms as well. Abnormal Q waves on electrocardiogram 07/17/2023 Coronary artery disease invo lving coushatta coronary artery of coushatta heart without angina pectoris 07/17/2023 Equivocal stress [...] than 25,000 Anxiety 08/01/2016 Simple chronic bronchitis ([facility] V24, [facility] V28) 12/24/2015 Fatty liver disease, nonalcoholic 06/30/2013 [...] patient does not tolerate Prilosec. Morbid obesity ([facility] V24, [facility] V28) 2005 Diffuse cystic mastopathy 07/27/2005 Resolved Problems Problem Noted Date Diagnosed Date Resolved Date S/P knee replacement 02/25/2019 024 Encounters Date Type Department Care Team Description 11/24/2024 9:00 AM EDT Office Visit Orthopedic Surgery - [place] [address] [place] [phone] [place], DPM Pain in toes of both feet (Primary Dx); Onychomycosis; Equinus contracture of right ankle; Pes planus of both feet; Plantar fasciitis from Last 3 Months Immunizations Name Administration Dates Next Due Hepatitis B (Ejtawzu-P-Udxfs , Recombivax HB-Adult) 19yo and older 03/28/2011,03/28/2009 [...] JOINT REPLACEMENT PROCEDURE:JOINT REPLACEMENT BREAST BIOPSY PROCEDURE: [place] BIOPSY BREAST OPEN INCISIONAL HYSTERECTOMY 2004 PROCEDURE: [place] VAGINAL HYSTERECTOMY UTERUS 250 GM/< SALPINGOOPHORECTOMY 2004 PROCEDURE: NJ LAPAROSCOPY W/RMVL ADNEXAL STRUCTURES; COMMENT: right ESOPHAGOGASTRODUODENOSCOPY 07/24/2011 PROCEDURE: NJ ESOPHAGOGASTRODUODENOSCOPY TRANSORAL DIAGNOSTIC; COMMENT: hiatus hernia FLEXIBLE SIGMOIDOSCOPY PROCEDURE: NJ SIGMOIDOSCOPY FLX DX W/COLLJ SPEC BR/WA IF PFRMD; COMMENT: adenoma and tics; full colonoscopy in 3 yrs COLONOSCOPY 10/11/11 [facility] PROCEDURE: HISTORICAL COLONOSCOPY; COMMENT: tics; repeat in ten yrs under propofol KNEE SURGERY 10/17/2017 Left PROCEDURE: HISTORICAL KNEE SURGERY; COMMENT: Arthroscopy TOTAL KNEE ARTHROPLASTY 09/09/2018 Left PROCEDURE: HISTORICAL TOTAL KNEE REPLACE ESOPHAGOGASTRODUODENOSCOPY 01/05/2021 PROCEDURE: NJ EGD TRANSORAL BIOPSY SINGLE/MULTIPLE; COMMENT: small hiatal hernia, bilious fluid, otherwise normal COLONOSCOPY 01/05/2021 PROCEDURE: HISTORICAL COLONOSCOPY; COMMENT: tiny polyp and diverticulosis Medical History Medical History Date Comments Peptic ulceration DX:Peptic ulce ration Arthritis DX:Arthritis Tobacco use disorder DX:Tobacco use disorder; COMMENT: Quit 11/10/2007 Endometriosis, site unspecified DX:Endometriosis, site unspecified Heartburn DX:Heartburn Headache(784.0) DX:Headache(784. 0) Chest pain 06/10/2007 DX:Chest pain; C OMMENT: 2007, neg. Nuclear ETT and hospitalization Adrenal adenoma [...] your loved ones. For example, child care team lead or elderly care for an older adult? [...] 9:15 AM EDT Office Visit Bariatric Surgery - [place] [address] [facility] [address] [place] [address] Horacio Duque MD [address] [place] [phone] 02/17/2025 8:30 AM EDT Office Visit Orthopedic Surgery - [place] [address] [facility] [address] [place] [address] [place] Ceja DPM [address] [place] [address] 03/04/2025 8:00 AM EST Office Visit Adult Medicine [facility] [address] [place] [phone] Madina Fry MD [address] [place] [address] 03/09/2025 7:40 AM EST Office Visit [facility] [address] [facility] [address] [place] [address] Cristiana Ho NP [address] [place] [address] [place] [address] Health Maintenance Due Date Last Done Comments [...] this topic Medical Devices Implanted Type Area Steward/Stewardess Chief Cargo Vessel Device Identifier Shelf Expiration Date Model / Serial / Lot Knee Left: Knee Procedures Procedure Name Priority Date/Time Associated Diagnosis Comments INJECTION TENDON OR LIGAMENT Routine 11/24/2024 9:00 AM EDT Plantar fasciitis LIPID PANEL WITH REFLEX TO DIRECT LDL Routine 08/25/2024 9:48 AM EDT Coronary artery disease involving coushatta coronary artery of coushatta heart without angina pectoris Mixed hyperlipidemia CT [...] LAB CHEMISTRY METHOD 08/25/2024 3:29 PM EDT [facility] Triglycerides 156(H) 0 - 150 mg/dL LAB CHEMISTRY METHOD 08/25/2024 3:29 PM EDT [facility] HDL 48 >=40 mg/dL LAB CHEMISTRY METHOD 08/25/2024 3:29 PM EDT [facility] LDL Calculated 51 0 - 100 mg/dL LAB CHEMISTRY METHOD 08/25/2024 3:29 PM EDT [facility] VLDL Cholesterol Brett 31.2 mg/dL LAB CHEMISTRY METHOD 08/25/2024 3:29 PM EDT [facility] Non HDL Chol. (LDL+VLDL) 82 <145 mg/dL LAB CHEMISTRY METHOD 08/25/2024 3:29 PM EDT [facility] Chol/HDL Ratio 2.7 0.0 - 4.4 LAB CHEMISTRY METHOD 08/25/2024 3:29 PM EDT [facility] Blood Venous blood specimen / Unknown Venipuncture / Unknown 08/25/2024 9:48 AM EDT 08/25/2024 9:48 AM EDT Tray Beavers MD LAB BLOOD ORDERABLES Final Resu lt [facility] [address] [place] [address], [place] [phone] * CT Lung Screening (04/15/2024 7:05 AM [...] chest CT in 12 months. [place] ([id number]) -------- FINAL REPORT -------- Dictated By: Madai Donald Dictated Date: 04/16/2024 14:52 ET Assigned Physician: Madai Donald Reviewed and Electronically Signed By: Madai Donald Signed Date: 04/16/2024 15:02 ET Workstation ID: [id number] Transcribed By: Self Edit Transcribed Date: 04/16/2024 14:52 ET Narrative 04/16/2024 3:02 PM EST History: 63 year-old 67 pack-year current smoker, asymptomatic, for lung cancer screening. Comparison: 04/11/23 Technique: Helical volumetric imaging of the thorax was performed, using low- dose technique, without IV contrast. DLP: 158.31 mGy/cm CTDIvol: 4.83 mGy [place] [employer] VCT Iterative reconstruction technique Findings: Lungs and [...] contrast. DLP: 158.31 mGy/cm CTDIvol: 4.83 mGy [employer] Iterative reconstruction technique Findings: Lungs and Airways: [...] low-dose noncontrast chestCT in 12 months. Telerad SAIGE ([id number]) -------- FINAL REPORT -------- Dictated By: Madai Donald Dictated Date: 04/16/2024 14:52 ET Assigned Physician: Madai Donald Reviewed and Electronically Signed By: Madai Donald Signed Date: 04/16/2024 15:02 ET Workstation ID: [id number] Transcribed By: Self Edit Transcribed Date: 04/16/2024 [...] Most Recently Relevant to Health Maintenance Insurance [facility] Care Teams Catholic Priest Relationship Specialty Start Date End Date Madina Fry MD [address] [place] [phone] PCP - General Internal Medicine 03/24/24
--- OUTSIDE RECORDS SUMMARY | 2024-12-24 08:27 | XMS_ITS | Clinical Summary ---
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
== END 2024-12-24 08:36 | disposition home or self-care (01) ==
LOC: HO.HOS 08:09
PROVIDERS: PCP Student in an Organized Health Care Education/Training Program; Visit Provider Orthopaedic Surgery
DX: M25.811 Other specified joint disorders, right shoulder (principal)
CPT/HCPCS: 20610; 99213

== ENCOUNTER → 2024-12-24 08:08 | Outpatient (BNVA) | payer OTHER, SELFPAY | PROVIDERS: PCP Student in an Organized Health Care Education/Training Program; Visit Provider Orthopaedic Surgery | DX: M25.811 Other specified joint disorders, right shoulder (principal) | CPT/HCPCS: 20610; J1010; J2003 ==